=== PATIENT | female | born 1945 | race Caucasian/White ===

== ENCOUNTER → 2018-03-25 | Outpatient (CLI) | payer MEDICARE, OTHER ==
[~2018-03-25] MED LIST: ACET500 PO; CALCIUM + VIT1 EACH PO; CLOBET30L TOP; CYAN1000 PO; CYCL10 PO; ESTR25VT; FLUT110OIA INH; GABA100 PO; HYDACE5 PO; MAXIMUM DAILY1 EACH PO; MONT10T PO; NITR100 PO; Nitrofurantoin50 MG PO; Norco 5-325 Ta1 EACH PO; OMEP10ER PO; OXYB5 PO; Omeprazole20 M1 PO; Percocet 5-3251 EACH PO; QVAR7.3 G1 IH; RABE20; Tylophen500 MG PO; Zofran4 MG PO
[2018-03-25 15:01] LABS: Source, Urine Clean Catch
[2018-03-25 15:13] LABS: Bacteria Few /hpf; Red Blood Cells, Urine 0-2 /hpf (0-2); Squamous Epithelial Cells Mod /hpf (Few)
== END | disposition home or self-care (01) ==
LOC: LAB SHORT 14:57
PROVIDERS: Physician Assistant
DX: M54.5 Low back pain (principal); R82.79 Other abnormal findings on microbiological examination of urine
CPT/HCPCS: 81015; 87077; 87086; 87186

== ENCOUNTER 2018-05-01 01:49 | Emergency (ER) | payer MEDICARE, OTHER ==
[~2018-05-01] VITALS: Ht 160 cm; Wt 98.4 kg
== END 2018-05-01 02:39 | disposition home or self-care (01) ==
LOC: ER 01:49
DX: G89.29 Other chronic pain (principal); M54.5 Low back pain; S32.059D Unspecified fracture of fifth lumbar vertebra, subsequent encounter for fracture with routine healing; Z88.1 Allergy status to other antibiotic agents; Z88.0 Allergy status to penicillin; Z88.5 Allergy status to narcotic agent; Z88.8 Allergy status to other drugs, medicaments and biological substances
CPT/HCPCS: 96372; 99284-25; J1170; J1885; J2405

== ENCOUNTER 2019-01-19 18:09 | Emergency (ER) | payer MEDICARE, OTHER ==
[~2019-01-19] VITALS: Ht 160 cm; Wt 88.0 kg
[2019-01-19 19:53] LABS: BASOPHILS ABSOLUTE AUTO 0.03 K/mm3 (0.00-0.23); BASOPHILS PERCENT AUTO 0 % (0-2); EOSINOPHILS ABSOLUTE AUTO 0.71 K/mm3 (0.00-0.68); EOSINOPHILS PERCENT AUTO 9 % (0-6); Hematocrit 30.2 % (33.0-51.0); Hemoglobin 10.2 g/dL (11.5-16.0); IMMATURE GRAN ABSOLUTE AUTO 0.03 K/mm3 (0.00-0.10); IMMATURE GRAN PERCENT AUTO 0 % (0-1); LYMPHOCYTES ABSOLUTE AUTO 1.56 K/mm3 (0.84-5.20); LYMPHOCYTES PERCENT AUTO 19 % (21-46); MONOCYTES ABSOLUTE AUTO 0.62 K/mm3 (0.16-1.47); MONOCYTES PERCENT AUTO 7 % (4-13); Mean Corpuscular HGB 33.1 pg (26.0-34.0); Mean Corpuscular HGB Conc 33.8 g/dL (31.5-36.5); Mean Corpuscular Volume 98 fL (80-100); Mean Platelet Volume 11.9 fL (9.1-12.4); NEUTROPHILS ABSOLUTE AUTO 5.39 K/mm3 (1.96-9.15); NEUTROPHILS PERCENT AUTO 65 % (41-73); Platelet Count 240 K/mm3 (150-400); RDW Coefficient Variation 13.5 % (11.7-14.2); RDW Standard Deviation 47.7 fL (35.1-46.3); Red Blood Cell Count 3.08 M/mm3 (3.80-5.20); White Blood Cell Count 8.34 K/mm3 (4.00-11.30)
[2019-01-19 20:21] LABS: Alanine Aminotransfer (ALT/SGP 23 U/L (12-78); Albumin, Blood 3.7 g/dL (3.4-5.0); Albumin/Globulin Ratio 1.2 (0.8-1.8); Alk Phos 107 U/L (50-136); Anion Gap 5 mmol/L (6-16); Aspartate Aminotrans (AST/SGOT 23 U/L (12-37); Bilirubin, Total 0.4 mg/dL (0.1-1.0); Blood Urea Nitrogen 12 mg/dL (8-24); Bun/Creatinine Ratio 15.7 (12.0-20.0); CO2, Blood 27 mmol/L (21-32); Calcium, Blood 9.2 mg/dL (8.5-10.1); Chloride, Blood 109 mmol/L (98-108); Creatinine, Blood 0.76 mg/dL (0.40-1.00); Glomerular Filtration Rate >60 (60-); Glucose, Blood 95 mg/dL (70-99); Potassium, Blood 4.2 mmol/L (3.5-5.5); Sodium, Blood 141 mmol/L (136-145); Total Protein, Blood 6.7 g/dL (6.4-8.2)
[2019-01-19] MEDS ORDERED: HYDCHL12.5 PO (20:26)
[2019-01-19] MEDS ORDERED: MONT10T PO (20:26)
[2019-01-19] MEDS ORDERED: OXYB5 PO (20:27)
[2019-01-19] MEDS ORDERED: OMEPRAZOLE20 MG PO (20:29)
[2019-01-19] MEDS ORDERED: GABA100 PO (20:30)
[2019-01-19] MEDS ORDERED: ALEN70 PO (20:31)
[2019-01-19] MEDS ORDERED: ASCO500 PO (20:33)
[2019-01-19] MEDS ORDERED: CALCIUM CITRAT1 EAC7 PO (20:36)
[2019-01-19] MEDS ORDERED: ONE DAILY FOR1 EAC3 PO (20:37)
[2019-01-19] MEDS ORDERED: VITAMIN D32000 UNI1 PO (20:38)
[2019-01-19] MEDS ORDERED: DOCU100 PO (20:39)
[2019-01-19] MEDS ORDERED: ACET500 PO (20:47)
[2019-01-19] MEDS ORDERED: Vitamin B Comple1 EA PO (20:47)
[2019-01-19] MEDS ORDERED: Advil200 M1 PO (20:48)
[2019-01-19 20:55] LABS: Source, Urine Clean Catch
[2019-01-19 21:00] LABS: Bilirubin, Urine Neg (Neg); Blood, Urine Neg (Neg); Glucose Qualitative, Urine Neg (Neg); Ketones, Urine Neg (Neg); Leukocyte Esterase, Urine 3+ (Neg); Nitrite, Urine Neg (Neg); Protein, Urine Neg (Neg); Specific Gravity, Urine 1.005 (1.003-1.022); Urobilinogen, Urine NORM (Normal)
[2019-01-19 21:08] LABS: Appearance, Urine Clear (Clear); Color, Urine Yellow (P-Yellow)
[2019-01-19 21:12] LABS: Red Blood Cells, Urine Not Seen /hpf (0-2); Squamous Epithelial Cells Few /hpf (Few)
[2019-01-19 21:13] LABS: Bacteria Mod /hpf; Transitional Epithelial Cells Rare /hpf (0-Rare)
[2019-01-19] MEDS ORDERED: Bactrim Ds Tab1 EACH PO (22:22)
== END 2019-01-19 23:04 | disposition home or self-care (01) ==
LOC: ER 18:09
PROVIDERS: Emergency Medicine; Physician Assistant
DX: K52.9 Noninfective gastroenteritis and colitis, unspecified (principal); K21.9 Gastro-esophageal reflux disease without esophagitis; I10 Essential (primary) hypertension; J45.909 Unspecified asthma, uncomplicated; Z88.1 Allergy status to other antibiotic agents; Z88.0 Allergy status to penicillin; Z88.8 Allergy status to other drugs, medicaments and biological substances; Z88.6 Allergy status to analgesic agent; Z79.899 Other long term (current) drug therapy
CPT/HCPCS: 36415; 74177; 80053; 81001; 82272; 85025; 86850; 86900; 86901; 87086; 93005; 93010; 96360-59; 99284-25; J7120; Q9967

== ENCOUNTER → 2019-01-22 | Outpatient (CLI) | payer MEDICARE, OTHER ==
[~2019-01-22] MED LIST changes: +ALEN70 PO; +ASCO500 PO; +Advil200 M1 PO; +Bactrim Ds Tab1 EACH PO; +CALCIUM CITRAT1 EAC7 PO; +DOCU100 PO; +HYDCHL12.5 PO; +OMEPRAZOLE20 MG PO; +ONE DAILY FOR1 EAC3 PO; +VITAMIN D32000 UNI1 PO; +Vitamin B Comple1 EA PO
[2019-01-23 13:58] LABS: Adenovirus F 40/41 Not Detected (NOT DETECT); Astrovirus Not Detected (NOT DETECT); Campylobacter Sp Not Detected (NOT DETECT); Cryptosporidium Not Detected (NOT DETECT); Cyclospora Cayetanensis Not Detected (NOT DETECT); E. Coli O157 Not Detected (NOT DETECT); Entamoeba Histolytica Not Detected (NOT DETECT); Enteroaggregative E. coli-EAEC Not Detected (NOT DETECT); Enteropathogenic E. coli-EPEC Not Detected (NOT DETECT); Enterotoxigenic E. coli-ETEC Not Detected (NOT DETECT); Giardia Lamblia Not Detected (NOT DETECT); Norovirus GI/GII Not Detected (NOT DETECT); Plesiomonas Shigelloides Not Detected (NOT DETECT); Rotavirus A Not Detected (NOT DETECT); Salmonella Sp Not Detected (NOT DETECT); Sapovirus Not Detected (NOT DETECT); Shiga Toxin-prod E. coli-STEC Not Detected (NOT DETECT); Shigella/Enteroin E. coli-EIEC Not Detected (NOT DETECT); Vibrio Cholerae Not Detected (NOT DETECT); Vibrio Sp Not Detected (NOT DETECT); Yersinia Enterocolitica Not Detected (NOT DETECT)
== END | disposition home or self-care (01) ==
LOC: LAB SHORT 21:20 → LAB 21:20
PROVIDERS: Physician Assistant
DX: K52.9 Noninfective gastroenteritis and colitis, unspecified (principal)
CPT/HCPCS: 0097U

== ENCOUNTER 2019-02-06 13:25 | Day surgery (SDC) | payer MEDICARE, OTHER ==
[~2019-02-06] VITALS: Ht 160 cm; Wt 88.4 kg
== END 2019-02-06 15:27 | disposition home or self-care (01) ==
LOC: ORSCSDS 13:25
PROVIDERS: Internal Medicine Gastroenterology
PROC: 0DBE8ZX Excision of Large Intestine, Via Natural or Artificial Opening Endoscopic, Diagnostic (ICD-10-PCS; principal; 2019-02-06 15:15)
DX: K62.5 Hemorrhage of anus and rectum (principal); R10.32 Left lower quadrant pain; K57.30 Diverticulosis of large intestine without perforation or abscess without bleeding; K64.8 Other hemorrhoids; Z86.010 Personal history of colon polyps; Z79.899 Other long term (current) drug therapy
CPT/HCPCS: 88305; J2704; J7120

== ENCOUNTER → 2019-04-25 | Outpatient (CLI) | payer MEDICARE, OTHER | END | disposition home or self-care (01) | LOC: LAB EV 17:52 → LAB SHORT 17:52 → LAB 17:52 | DX: N39.0 Urinary tract infection, site not specified (principal) | CPT/HCPCS: 87086 ==

== ENCOUNTER → 2019-07-12 | Outpatient (CLI) | payer MEDICARE, OTHER | END | disposition home or self-care (01) | LOC: PLD 08:24 → LAB SHORT 08:24 | DX: M79.3 Panniculitis, unspecified (principal) | CPT/HCPCS: 88305; 88312 ==

== ENCOUNTER → 2019-07-20 | Outpatient (CLI) | payer MEDICARE, OTHER ==
[2019-07-20 18:48] LABS: BASOPHILS ABSOLUTE AUTO 0.06 K/mm3 (0.00-0.23); BASOPHILS PERCENT AUTO 1 % (0-2); EOSINOPHILS ABSOLUTE AUTO 0.01 K/mm3 (0.00-0.68); EOSINOPHILS PERCENT AUTO 0 % (0-6); Hematocrit 31.6 % (33.0-51.0); Hemoglobin 10.4 g/dL (11.5-16.0); IMMATURE GRAN ABSOLUTE AUTO 0.04 K/mm3 (0.00-0.10); IMMATURE GRAN PERCENT AUTO 0 % (0-1); LYMPHOCYTES ABSOLUTE AUTO 1.11 K/mm3 (0.84-5.20); LYMPHOCYTES PERCENT AUTO 10 % (21-46); MONOCYTES ABSOLUTE AUTO 0.47 K/mm3 (0.16-1.47); MONOCYTES PERCENT AUTO 4 % (4-13); Mean Corpuscular HGB Conc 32.9 g/dL (31.5-36.5); Mean Corpuscular Volume 100 fL (80-100); Mean Platelet Volume 11.8 fL (9.1-12.4); NEUTROPHILS ABSOLUTE AUTO 9.73 K/mm3 (1.96-9.15); NEUTROPHILS PERCENT AUTO 85 % (41-73); Platelet Count 283 K/mm3 (150-400); RDW Coefficient Variation 14.8 % (11.7-14.2); RDW Standard Deviation 53.1 fL (35.1-46.3); Red Blood Cell Count 3.15 M/mm3 (3.80-5.20); White Blood Cell Count 11.42 K/mm3 (4.00-11.30)
[2019-07-20 19:11] LABS: Alanine Aminotransfer (ALT/SGP 37 U/L (12-78); Albumin, Blood 3.9 g/dL (3.4-5.0); Albumin/Globulin Ratio 1.3 (0.8-1.8); Alk Phos 100 U/L (50-136); Anion Gap 5 mmol/L (6-16); Aspartate Aminotrans (AST/SGOT 21 U/L (12-37); Bilirubin, Total 0.5 mg/dL (0.1-1.0); Blood Urea Nitrogen 21 mg/dL (8-24); Bun/Creatinine Ratio 27.1 (12.0-20.0); CO2, Blood 27 mmol/L (21-32); Calcium, Blood 9.3 mg/dL (8.5-10.1); Chloride, Blood 107 mmol/L (98-108); Creatinine, Blood 0.78 mg/dL (0.40-1.00); Glomerular Filtration Rate >60 (60-); Glucose, Blood 101 mg/dL (70-99); Potassium, Blood 4.3 mmol/L (3.5-5.5); Sodium, Blood 139 mmol/L (136-145); Total Protein, Blood 6.9 g/dL (6.4-8.2)
== END | disposition home or self-care (01) ==
LOC: LAB SHORT 16:30 → LAB 16:30
PROVIDERS: Internal Medicine Rheumatology
DX: M06.9 Rheumatoid arthritis, unspecified (principal); D64.9 Anemia, unspecified
CPT/HCPCS: 80053; 85025; 85651

== ENCOUNTER → 2020-03-26 | Outpatient (CLI) | payer MEDICARE, OTHER | END | disposition home or self-care (01) | LOC: LAB EV 11:30 → LAB SHORT 11:30 | DX: N39.0 Urinary tract infection, site not specified (principal) | CPT/HCPCS: 87077; 87086; 87186 ==

== ENCOUNTER → 2020-04-29 | Outpatient (CLI) | payer MEDICARE, OTHER | END | disposition home or self-care (01) | LOC: PLD 12:11 → LAB SHORT 12:11 | DX: D36.12 Benign neoplasm of peripheral nerves and autonomic nervous system, upper limb, including shoulder (principal) | CPT/HCPCS: 88305 ==

== ENCOUNTER → 2020-07-26 | Outpatient (CLI) | payer MEDICARE, OTHER ==
[~2020-07-26] MED LIST changes: +ALBU90OI; +ASPI325EC PO; +ATOR40TA PO; +CALCIUM 600-VI1 EAC2 PO; -CALCIUM CITRAT1 EAC7 PO; +DAILY-VITE1 EACH PO; +FLUTICASONE PRO16 GM; +FOLI1 PO; +FUROSEMIDE40 MG PO; +K-Dur 20 meq T20 MEQ PO; +METHOTREXATE2.5 M2 PO; +METOPROLOL TART50 M2 PO; -ONE DAILY FOR1 EAC3 PO; +PRED5 PO
[2020-07-26 14:14] LABS: Hematocrit 32.4 % (33.0-51.0)
== END | disposition home or self-care (01) ==
LOC: LAB 14:10 → LAB SHORT 14:10
PROVIDERS: Chiropractor
DX: K92.1 Melena (principal)
CPT/HCPCS: 85014; 85018

== ENCOUNTER 2020-08-12 18:18 | Observation (INO) | payer MEDICARE, OTHER ==
[~2020-08-12] VITALS: Ht 160 cm; Wt 100.5 kg
[~2020-08-12 18:18] MED LIST changes: -ALBU90OI; -ASPI325EC PO; -ATOR40TA PO; -FLUTICASONE PRO16 GM; -FOLI1 PO; -FUROSEMIDE40 MG PO; -K-Dur 20 meq T20 MEQ PO; -METHOTREXATE2.5 M2 PO; -METOPROLOL TART50 M2 PO; -PRED5 PO
[2020-08-12 19:06] LABS: BASOPHILS ABSOLUTE AUTO 0.03 K/mm3 (0.00-0.23); BASOPHILS PERCENT AUTO 0 % (0-2); EOSINOPHILS ABSOLUTE AUTO 0.01 K/mm3 (0.00-0.68); EOSINOPHILS PERCENT AUTO 0 % (0-6); Hematocrit 31.8 % (33.0-51.0); Hemoglobin 10.7 g/dL (11.5-16.0); IMMATURE GRAN ABSOLUTE AUTO 0.06 K/mm3 (0.00-0.10); IMMATURE GRAN PERCENT AUTO 1 % (0-1); LYMPHOCYTES ABSOLUTE AUTO 0.89 K/mm3 (0.84-5.20); LYMPHOCYTES PERCENT AUTO 10 % (21-46); MONOCYTES ABSOLUTE AUTO 0.35 K/mm3 (0.16-1.47); MONOCYTES PERCENT AUTO 4 % (4-13); Mean Corpuscular HGB Conc 33.6 g/dL (31.5-36.5); Mean Corpuscular Volume 104 fL (80-100); Mean Platelet Volume 11.1 fL (9.1-12.4); NEUTROPHILS ABSOLUTE AUTO 7.93 K/mm3 (1.96-9.15); NEUTROPHILS PERCENT AUTO 86 % (41-73); NRBC ABSOLUTE 0.03 K/mm3 (0.00-0.02); NRBC Auto 0.3 /100 WBC (0.0-0.2); RDW Coefficient Variation 13.8 % (11.7-14.2); RDW Standard Deviation 52.5 fL (35.1-46.3); Red Blood Cell Count 3.06 M/mm3 (3.80-5.20); White Blood Cell Count 9.27 K/mm3 (4.00-11.30)
[2020-08-12 19:16] LABS: Alanine Aminotransfer (ALT/SGP 38 U/L (12-78); Albumin, Blood 3.7 g/dL (3.4-5.0); Albumin/Globulin Ratio 1.2 (0.8-1.8); Alk Phos 79 U/L (50-136); Anion Gap 8 mmol/L (6-16); Aspartate Aminotrans (AST/SGOT 29 U/L (12-37); Bilirubin, Total 0.6 mg/dL (0.1-1.0); Blood Urea Nitrogen 20 mg/dL (8-24); Bun/Creatinine Ratio 24.8 (12.0-20.0); CO2, Blood 26 mmol/L (21-32); Calcium, Blood 9.8 mg/dL (8.5-10.1); Chloride, Blood 103 mmol/L (98-108); Creatinine, Blood 0.81 mg/dL (0.40-1.00); Glomerular Filtration Rate >60 (60-); Glucose, Blood 116 mg/dL (70-99); Potassium, Blood 4.6 mmol/L (3.5-5.5); Sodium, Blood 137 mmol/L (136-145); Total Protein, Blood 6.7 g/dL (6.4-8.2); Troponin I <0.015 ng/mL (0.000-0.040)
[2020-08-12 21:32] LABS: Source, Urine Voided
[2020-08-12 21:34] LABS: Bilirubin, Urine Neg (Neg); Blood, Urine Neg (Neg); Glucose Qualitative, Urine Neg (Neg); Ketones, Urine Neg (Neg); Leukocyte Esterase, Urine 1+ (Neg); Nitrite, Urine Neg (Neg); Protein, Urine Neg (Neg); Urobilinogen, Urine NORM (Normal)
[2020-08-12 21:40] LABS: Appearance, Urine Clear (Clear); Color, Urine Pale Yellow (P-Yellow)
[2020-08-12 21:41] LABS: Bacteria Not Seen /hpf; Red Blood Cells, Urine Not Seen /hpf (0-2); Squamous Epithelial Cells Not Seen /hpf (Few)
[2020-08-12] MEDS ORDERED: METOPROLOL TART50 M2 PO (21:45)
[2020-08-12] MEDS ORDERED: FUROSEMIDE40 MG PO (21:46)
[2020-08-12] MEDS ORDERED: METHOTREXATE2.5 M2 PO (21:46)
[2020-08-12] MEDS ORDERED: K-Dur 20 meq T20 MEQ PO (21:47)
[2020-08-12] MEDS ORDERED: PRED5 PO (21:49)
[2020-08-12] MEDS ORDERED: FOLI1 PO (21:49)
[2020-08-12] MEDS ORDERED: OXYB5 PO (21:50)
[2020-08-12] MEDS ORDERED: ASPI325EC PO (21:51)
[2020-08-12] MEDS ORDERED: FLUTICASONE PRO16 GM (21:52)
[2020-08-13 07:21] LABS: BASOPHILS ABSOLUTE AUTO 0.04 K/mm3 (0.00-0.23); BASOPHILS PERCENT AUTO 1 % (0-2); EOSINOPHILS ABSOLUTE AUTO 0.13 K/mm3 (0.00-0.68); EOSINOPHILS PERCENT AUTO 2 % (0-6); Hematocrit 29.7 % (33.0-51.0); Hemoglobin 10.1 g/dL (11.5-16.0); IMMATURE GRAN ABSOLUTE AUTO 0.03 K/mm3 (0.00-0.10); IMMATURE GRAN PERCENT AUTO 0 % (0-1); LYMPHOCYTES ABSOLUTE AUTO 1.98 K/mm3 (0.84-5.20); LYMPHOCYTES PERCENT AUTO 28 % (21-46); MONOCYTES ABSOLUTE AUTO 0.55 K/mm3 (0.16-1.47); MONOCYTES PERCENT AUTO 8 % (4-13); Mean Corpuscular HGB 35.8 pg (26.0-34.0); Mean Corpuscular Volume 105 fL (80-100); Mean Platelet Volume 11.2 fL (9.1-12.4); NEUTROPHILS ABSOLUTE AUTO 4.48 K/mm3 (1.96-9.15); NEUTROPHILS PERCENT AUTO 62 % (41-73); Platelet Count 258 K/mm3 (150-400); RDW Coefficient Variation 13.9 % (11.7-14.2); RDW Standard Deviation 52.8 fL (35.1-46.3); Red Blood Cell Count 2.82 M/mm3 (3.80-5.20); White Blood Cell Count 7.21 K/mm3 (4.00-11.30)
[2020-08-13 07:39] LABS: Anion Gap 2 mmol/L (6-16); Blood Urea Nitrogen 17 mg/dL (8-24); Bun/Creatinine Ratio 20.3 (12.0-20.0); CO2, Blood 32 mmol/L (21-32); Calcium, Blood 8.9 mg/dL (8.5-10.1); Chloride, Blood 108 mmol/L (98-108); Creatinine, Blood 0.84 mg/dL (0.40-1.00); Glomerular Filtration Rate >60 (60-); Glucose, Blood 81 mg/dL (70-99); Potassium, Blood 4.2 mmol/L (3.5-5.5); Sodium, Blood 142 mmol/L (136-145); Troponin I <0.015 ng/mL (0.000-0.040)
--- NOTE | 2020-08-13 15:39 | NUR ---
SHIFT SUMMARY 1255 RECEIVED PT TO RM 303 VIA MAGALYS FROM ER. PT ADMITTED FOR C/O CP; TROPONINS X3 NEG TO PRESENT. PT BEING PREPARED FOR FIRST PART OF STRESS TEST WHILE IN ER, BEING INJECTED BY NUC MED AND THEN SENT UP TO . PT PROVIDED LUNCH PER NUC MED AND THEN TAKEN DOWN FOR STRESS TEST. RECEIVED REPORT FROM CHARLES AUSTIN, PT C/O MIDSTERNUM CP LASTING APPROX 45 MINS BEFORE COMING TO ER LAST NIGHT AT 1830. PT WITH NEW ONSET OF A-FIB IN JUNE, STARTING ON ELIQUIS. PT DEVELOPING GIB AND STOPPED TAKING ELIQUIS. PT REPORTED THAT SHE DOES HAVE SEVERE ACID REFLUX WELL. PT ABLE TO AMBULATE TO BTHRM WITH 1P SBA. PT VOIDING WELL. PT CONTINUES TO DENY CP. NO C/O. PT WILL BE ABLE TO EAT DINNER TONIGHT AND BREAKFAST IN AM IF SHE CAN BE DONE BY 0800. PT INFORMED AND VERBALIZED UNDERSTANDING. DENIES FURTHER NEEDS AT THIS TIME. CALL LT IN REACH
--- NOTE | 2020-08-13 19:33 | NUR ---
ASSUMPTION OF CARE. SALVADOR IS DOING WELL, NO CP [facility] [place] FIRST PART OF STRESS TEST PERFORMED TODAY. DENIES ANY CARDIAC SYMPTOMS AT THIS TIME. VS WNL, AFEBRILE. NO EDEMA. HR SINUS. WILL HAVE SECOND PART OF STRESS TEST TOMORROW. PM MEDS GIVEN, CALL LIGHT IS WITH IN REACH.
--- NOTE | 2020-08-14 06:24 | NUR ---
SHIFT SUMMARY: SALVADOR HAD A GOOD NIGHT, NO CP OR SIGNS OF CARDIAC ISSUES. SHE DID GET A HEADACHE BUT WAS RESOLVED WHEN TYLENOL WAS GIVEN. INDEPENDENT IN THE ROOM. VS WNL, AFEBRILE. NO ACUTE CHANGES TO NOT THIS SHIFT. SLEPT WELL. WILL BE NPO AFTER 0800 THIS AM FOR 2ND PART OF STRESS TEST. CALL LIGHT IS IN REACH.
[2020-08-14] MEDS ORDERED: ATOR40TA PO (17:54)
--- NOTE | 2020-08-14 18:06 | NUR ---
DR EISENBERG, PT TO BE DISCHARGED TONITE. WILL PLACE ORDERS.
--- NOTE | 2020-08-14 19:20 | NUR ---
DISCHARGE REVIEWED WITH PT. PT VERBALIZED UNDERSTANDING MEDS AND INSTRUCT. IV PULLED INTACT. TELE REMOVED. PT WHEELEED TO DOOR AT 0915
[2020-10-08] MEDS ORDERED: ALBU90OI (15:32)
== END 2020-08-14 19:10 | disposition home or self-care (01) ==
LOC: ER 18:18 → MEDS 18:19 → ERHOLD 18:19 → MEDS 08-13 12:47
PROVIDERS: Emergency Medicine; Nurse Practitioner Acute Care; ADMIT Internal Medicine
DX: R07.9 Chest pain, unspecified (principal); I48.91 Unspecified atrial fibrillation; I10 Essential (primary) hypertension; K21.9 Gastro-esophageal reflux disease without esophagitis; M06.9 Rheumatoid arthritis, unspecified; M19.90 Unspecified osteoarthritis, unspecified site; J45.909 Unspecified asthma, uncomplicated
CPT/HCPCS: 36415; 71045; 78452; 80048; 80053; 81001; 83880; 84484; 85025; 93005; 93010; 93017; 96361-59; 96372; 96374-59; 96375-59; 99285-25; A9270; A9500; G0378; J0280; J1650; J2405; J2785; J3475; J7030; J7512

== ENCOUNTER 2020-10-14 10:50 | Day surgery (SDC) | payer MEDICARE, OTHER ==
[~2020-10-14] VITALS: Ht 160 cm; Wt 103.2 kg
[~2020-10-14 10:50] MED LIST changes: +ALBU90OI; +ASPI325EC PO; +ATOR40TA PO; +FLUTICASONE PRO16 GM; +FOLI1 PO; +FUROSEMIDE40 MG PO; +K-Dur 20 meq T20 MEQ PO; +METHOTREXATE2.5 M2 PO; +METOPROLOL TART50 M2 PO; +PRED5 PO
--- NOTE | 2020-10-14 11:26 | NUR ---
10/14/20 1126 GISELLA TRAN ONE ATTEMPT BY RAJ IN RH VALVE ONE SUCCESSFUL BY RAJ IN RFA PT TOW
== END 2020-10-14 12:47 | disposition home or self-care (01) ==
LOC: ORSCSDS 10:50
PROVIDERS: Internal Medicine Gastroenterology
PROC: 0DB68ZX Excision of Stomach, Via Natural or Artificial Opening Endoscopic, Diagnostic (ICD-10-PCS; principal; 2020-10-14 12:00)
PROC: 0DB98ZX Excision of Duodenum, Via Natural or Artificial Opening Endoscopic, Diagnostic (ICD-10-PCS; principal; 2020-10-14 12:00)
PROC: 0DB58ZX Excision of Esophagus, Via Natural or Artificial Opening Endoscopic, Diagnostic (ICD-10-PCS; principal; 2020-10-14 12:00)
DX: K21.00 Gastro-esophageal reflux disease with esophagitis, without bleeding (principal); K62.5 Hemorrhage of anus and rectum; K31.7 Polyp of stomach and duodenum; G47.33 Obstructive sleep apnea (adult) (pediatric); J45.909 Unspecified asthma, uncomplicated; I10 Essential (primary) hypertension; Z79.82 Long term (current) use of aspirin; Z79.899 Other long term (current) drug therapy; K44.9 Diaphragmatic hernia without obstruction or gangrene
CPT/HCPCS: 87081; 88305; 88342; J2001; J2250; J2704; J7120

== ENCOUNTER 2020-11-04 12:47 | Day surgery (SDC) | payer MEDICARE, OTHER ==
[~2020-11-04] VITALS: Ht 160 cm; Wt 103.4 kg
== END 2020-11-04 15:05 | disposition home or self-care (01) ==
LOC: ORSCSDS 12:47
PROVIDERS: Internal Medicine Gastroenterology
PROC: 0DJD8ZZ Inspection of Lower Intestinal Tract, Via Natural or Artificial Opening Endoscopic (ICD-10-PCS; principal; 2020-11-04 14:00)
DX: K92.1 Melena (principal); D50.9 Iron deficiency anemia, unspecified; K64.0 First degree hemorrhoids; K57.30 Diverticulosis of large intestine without perforation or abscess without bleeding; I48.91 Unspecified atrial fibrillation; Z79.01 Long term (current) use of anticoagulants; G47.33 Obstructive sleep apnea (adult) (pediatric); J44.9 Chronic obstructive pulmonary disease, unspecified; K21.9 Gastro-esophageal reflux disease without esophagitis; E66.01 Morbid (severe) obesity due to excess calories; Z68.39 Body mass index [BMI] 39.0-39.9, adult; Z79.899 Other long term (current) drug therapy
CPT/HCPCS: J2704; J7120

== ENCOUNTER → 2021-02-27 | Outpatient (CLI) | payer MEDICARE, OTHER ==
[2021-02-27 15:49] LABS: Alanine Aminotransfer (ALT/SGP 45 U/L (12-78); Albumin, Blood 3.7 g/dL (3.4-5.0); Albumin/Globulin Ratio 1.4 (0.8-1.8); Alk Phos 65 U/L (50-136); Anion Gap 9 mmol/L (6-16); Aspartate Aminotrans (AST/SGOT 20 U/L (12-37); Bilirubin, Total 0.8 mg/dL (0.1-1.0); Blood Urea Nitrogen 17 mg/dL (8-24); Bun/Creatinine Ratio 22.4 (12.0-20.0); CO2, Blood 26 mmol/L (21-32); Calcium, Blood 9.5 mg/dL (8.5-10.1); Chloride, Blood 105 mmol/L (98-108); Creatinine, Blood 0.76 mg/dL (0.40-1.00); Globulin, Blood 2.7 g/dL (2.2-4.0); Glomerular Filtration Rate >60 (60-); Glucose, Blood 128 mg/dL (70-99); Potassium, Blood 3.9 mmol/L (3.5-5.5); Sodium, Blood 140 mmol/L (136-145); Total Protein, Blood 6.4 g/dL (6.4-8.2)
[2021-02-27 16:00] LABS: BASOPHILS ABSOLUTE AUTO 0.06 K/mm3 (0.00-0.23); BASOPHILS PERCENT AUTO 1 % (0-2); EOSINOPHILS ABSOLUTE AUTO 0.32 K/mm3 (0.00-0.68); EOSINOPHILS PERCENT AUTO 3 % (0-6); Hematocrit 30.9 % (33.0-51.0); Hemoglobin 10.6 g/dL (11.5-16.0); IMMATURE GRAN ABSOLUTE AUTO 0.05 K/mm3 (0.00-0.10); IMMATURE GRAN PERCENT AUTO 1 % (0-1); LYMPHOCYTES ABSOLUTE AUTO 1.69 K/mm3 (0.84-5.20); LYMPHOCYTES PERCENT AUTO 16 % (21-46); MONOCYTES ABSOLUTE AUTO 0.82 K/mm3 (0.16-1.47); MONOCYTES PERCENT AUTO 8 % (4-13); Mean Corpuscular HGB 36.9 pg (26.0-34.0); Mean Corpuscular HGB Conc 34.3 g/dL (31.5-36.5); Mean Corpuscular Volume 108 fL (80-100); Mean Platelet Volume 11.7 fL (9.1-12.4); NEUTROPHILS ABSOLUTE AUTO 7.58 K/mm3 (1.96-9.15); NEUTROPHILS PERCENT AUTO 72 % (41-73); NRBC ABSOLUTE 0.03 K/mm3 (0.00-0.02); NRBC Auto 0.3 /100 WBC (0.0-0.2); Platelet Count 312 K/mm3 (150-400); RDW Coefficient Variation 13.7 % (11.7-14.2); RDW Standard Deviation 53.4 fL (35.1-46.3); Red Blood Cell Count 2.87 M/mm3 (3.80-5.20); White Blood Cell Count 10.52 K/mm3 (4.00-11.30)
== END | disposition home or self-care (01) ==
LOC: LAB 11:55 → LAB SHORT 11:55
PROVIDERS: Internal Medicine Rheumatology
DX: M06.9 Rheumatoid arthritis, unspecified (principal)
CPT/HCPCS: 80053; 85025; 85651

== ENCOUNTER → 2021-05-06 | Outpatient (CLI) | payer MEDICARE, OTHER | END | disposition home or self-care (01) | LOC: LAB 15:13 → LAB SHORT 15:13 | DX: L72.0 Epidermal cyst (principal); D36.11 Benign neoplasm of peripheral nerves and autonomic nervous system of face, head, and neck; D36.17 Benign neoplasm of peripheral nerves and autonomic nervous system of trunk, unspecified | CPT/HCPCS: 88305 ==

== ENCOUNTER 2021-07-06 11:52 | Emergency (ER) | payer MEDICARE ==
[~2021-07-06] VITALS: Ht 162.6 cm; Wt 108.9 kg
[2021-07-06] MEDS ORDERED: ELIQUIS5 M2 PO (15:01)
[2021-07-06 15:18] LABS: Source, Urine Clean Catch
[2021-07-06 15:20] LABS: Appearance, Urine Clear (Clear); Bilirubin, Urine Neg (Neg); Blood, Urine Neg (Neg); Color, Urine Yellow (P-Yellow); Glucose Qualitative, Urine Neg (Neg); Ketones, Urine Neg (Neg); Leukocyte Esterase, Urine 2+ (Neg); Nitrite, Urine Neg (Neg); Protein, Urine Neg (Neg); Urobilinogen, Urine NORM (Normal)
[2021-07-06 15:31] LABS: Red Blood Cells, Urine 0-2 /hpf (0-2); Squamous Epithelial Cells Rare /hpf (Few)
[2021-07-06 15:32] LABS: Bacteria Mod /hpf; Yeast/Fungi Urine Rare /hpf
[2021-07-06] MEDS ORDERED: Percocet 5-3251 EACH PO (15:43)
[2021-07-06] MEDS ORDERED: Macrobid 100 M100 MG PO (15:43)
== END 2021-07-06 16:19 | disposition home or self-care (01) ==
LOC: ER 11:52
PROVIDERS: Physician Assistant
DX: S39.012A Strain of muscle, fascia and tendon of lower back, initial encounter (principal); M16.12 Unilateral primary osteoarthritis, left hip; N39.0 Urinary tract infection, site not specified; J45.909 Unspecified asthma, uncomplicated; K21.9 Gastro-esophageal reflux disease without esophagitis; Z88.1 Allergy status to other antibiotic agents; Z88.0 Allergy status to penicillin; Z88.8 Allergy status to other drugs, medicaments and biological substances; Z88.5 Allergy status to narcotic agent; Z79.899 Other long term (current) drug therapy; X58.XXXA Exposure to other specified factors, initial encounter
CPT/HCPCS: 36415; 72131; 73700; 81001; 87086; J1885; J7030

== ENCOUNTER → 2021-07-24 | Outpatient (CLI) | payer MEDICARE ==
[~2021-07-24] MED LIST changes: +ELIQUIS5 M2 PO; +Macrobid 100 M100 MG PO
== END | disposition home or self-care (01) ==
LOC: LAB SHORT 10:45
DX: N39.0 Urinary tract infection, site not specified (principal)
CPT/HCPCS: 87086

== ENCOUNTER 2021-10-04 13:41 | Emergency (ER) | payer MEDICARE ==
[~2021-10-04] VITALS: Ht 162.6 cm; Wt 107.5 kg
[~2021-10-04 13:41] MED LIST changes: -CALCIUM 600-VI1 EAC2 PO; +CALCIUM 600-VI1 EAC6 PO; -K-Dur 20 meq T20 MEQ PO; +METO50 PO; -METOPROLOL TART50 M2 PO; +POTCHL20ER PO
[2021-10-04 14:08] LABS: Source, Urine Straight Cath
[2021-10-04] MEDS ORDERED: FUROSEMIDE40 MG PO (14:17)
[2021-10-04 14:27] LABS: Appearance, Urine Clear (Clear); Bilirubin, Urine Neg (Neg); Blood, Urine Neg (Neg); Color, Urine Yellow (P-Yellow); Glucose Qualitative, Urine Neg (Neg); Ketones, Urine Neg (Neg); Leukocyte Esterase, Urine Neg (Neg); Nitrite, Urine Neg (Neg); Protein, Urine Neg (Neg); Urobilinogen, Urine NORM (Normal)
[2021-10-04 15:44] LABS: Alanine Aminotransfer (ALT/SGP 40 U/L (12-78); Albumin, Blood 3.6 g/dL (3.4-5.0); Albumin/Globulin Ratio 1.4 (0.8-1.8); Alk Phos 97 U/L (50-136); Anion Gap 3 mmol/L (6-16); Aspartate Aminotrans (AST/SGOT 22 U/L (12-37); BASOPHILS ABSOLUTE AUTO 0.03 K/mm3 (0.00-0.23); BASOPHILS PERCENT AUTO 0 % (0-2); Bilirubin, Total 0.7 mg/dL (0.1-1.0); Blood Urea Nitrogen 13 mg/dL (8-24); Bun/Creatinine Ratio 17.5 (12.0-20.0); CO2, Blood 34 mmol/L (21-32); Calcium, Blood 9.3 mg/dL (8.5-10.1); Chloride, Blood 103 mmol/L (98-108); Creatinine, Blood 0.74 mg/dL (0.40-1.00); EOSINOPHILS ABSOLUTE AUTO 0.01 K/mm3 (0.00-0.68); EOSINOPHILS PERCENT AUTO 0 % (0-6); Globulin, Blood 2.5 g/dL (2.2-4.0); Glomerular Filtration Rate >60 (60-); Glucose, Blood 145 mg/dL (70-99); Hematocrit 28.5 % (33.0-51.0); Hemoglobin 9.4 g/dL (11.5-16.0); IMMATURE GRAN ABSOLUTE AUTO 0.07 K/mm3 (0.00-0.10); IMMATURE GRAN PERCENT AUTO 1 % (0-1); LYMPHOCYTES ABSOLUTE AUTO 0.68 K/mm3 (0.84-5.20); LYMPHOCYTES PERCENT AUTO 7 % (21-46); MONOCYTES PERCENT AUTO 4 % (4-13); Mean Corpuscular HGB 35.7 pg (26.0-34.0); Mean Corpuscular Volume 108 fL (80-100); Mean Platelet Volume 10.7 fL (9.1-12.4); NEUTROPHILS ABSOLUTE AUTO 9.15 K/mm3 (1.96-9.15); NEUTROPHILS PERCENT AUTO 88 % (41-73); NRBC ABSOLUTE 0.02 K/mm3 (0.00-0.02); NRBC Auto 0.2 /100 WBC (0.0-0.2); Platelet Count 294 K/mm3 (150-400); RDW Coefficient Variation 15.9 % (11.7-14.2); RDW Standard Deviation 61.8 fL (35.1-46.3); Red Blood Cell Count 2.63 M/mm3 (3.80-5.20); Sodium, Blood 140 mmol/L (136-145); Total Protein, Blood 6.1 g/dL (6.4-8.2); White Blood Cell Count 10.34 K/mm3 (4.00-11.30)
[2021-10-04] MEDS ORDERED: CYCL10 PO (16:46)
[2022-01-28] MEDS ORDERED: GABA300 PO (15:28)
[2022-01-28] MEDS ORDERED: NYSTRIT TOP (15:28)
[2022-01-28] MEDS ORDERED: MULVITA PO (15:28)
[2022-01-28] MEDS ORDERED: POTCHL20ER PO (15:31)
[2022-01-28] MEDS ORDERED: Prednisone10 MG PO (15:32)
[2022-01-28] MEDS ORDERED: FORTEO2.4 ML SC (15:33)
== END 2021-10-04 17:27 | disposition home or self-care (01) ==
LOC: ER 13:41
PROVIDERS: Emergency Medicine
DX: M54.50 Low back pain, unspecified (principal); G89.29 Other chronic pain; Z88.0 Allergy status to penicillin; Z88.5 Allergy status to narcotic agent; Z88.8 Allergy status to other drugs, medicaments and biological substances; K21.9 Gastro-esophageal reflux disease without esophagitis; Z79.899 Other long term (current) drug therapy
CPT/HCPCS: 36415; 51701; 51798; 80053; 81003; 85025; 96374; 99283-25; J1170

== ENCOUNTER 2021-12-08 21:38 | Inpatient (IN) | payer MEDICARE ==
[~2021-12-08] VITALS: Ht 162.6 cm; Wt 99.6 kg
[2021-12-09 00:16] LABS: BASOPHILS ABSOLUTE AUTO 0.01 K/mm3 (0.00-0.23); BASOPHILS PERCENT AUTO 0 % (0-2); EOSINOPHILS PERCENT AUTO 0 % (0-6); Hematocrit 29.5 % (33.0-51.0); Hemoglobin 9.5 g/dL (11.5-16.0); IMMATURE GRAN ABSOLUTE AUTO 0.02 K/mm3 (0.00-0.10); IMMATURE GRAN PERCENT AUTO 0 % (0-1); LYMPHOCYTES ABSOLUTE AUTO 1.37 K/mm3 (0.84-5.20); LYMPHOCYTES PERCENT AUTO 25 % (21-46); MONOCYTES ABSOLUTE AUTO 0.55 K/mm3 (0.16-1.47); MONOCYTES PERCENT AUTO 10 % (4-13); Mean Corpuscular HGB 34.5 pg (26.0-34.0); Mean Corpuscular HGB Conc 32.2 g/dL (31.5-36.5); Mean Corpuscular Volume 107 fL (80-100); Mean Platelet Volume 10.4 fL (9.1-12.4); NEUTROPHILS ABSOLUTE AUTO 3.65 K/mm3 (1.96-9.15); NEUTROPHILS PERCENT AUTO 65 % (41-73); Platelet Count 309 K/mm3 (150-400); RDW Coefficient Variation 18.2 % (11.7-14.2); RDW Standard Deviation 71.1 fL (35.1-46.3); Red Blood Cell Count 2.75 M/mm3 (3.80-5.20)
[2021-12-09 00:42] LABS: Albumin, Blood 3.8 g/dL (3.4-5.0); Albumin/Globulin Ratio 1.4 (0.8-1.8); Bilirubin, Total 1.2 mg/dL (0.1-1.0); Bun/Creatinine Ratio 17.6 (12.0-20.0); Calcium, Blood 9.7 mg/dL (8.5-10.1); Creatinine, Blood 0.68 mg/dL (0.40-1.00); Globulin, Blood 2.7 g/dL (2.2-4.0); Total Protein, Blood 6.5 g/dL (6.4-8.2)
[2021-12-09 01:32] LABS: Source, Urine Clean Catch
[2021-12-09 01:35] LABS: Appearance, Urine Cloudy (Clear); Bilirubin, Urine Neg (Neg); Blood, Urine 2+ (Neg); Glucose Qualitative, Urine Neg (Neg); Ketones, Urine Neg (Neg); Leukocyte Esterase, Urine 3+ (Neg); Nitrite, Urine Neg (Neg); Protein, Urine 2+ (Neg); Urobilinogen, Urine NORM (Normal); pH, Urine 6.5 (5.0-8.0)
[2021-12-09 01:44] LABS: Influenza A, PCR NEGATIVE (NEGATIVE); Influenza B, PCR NEGATIVE (NEGATIVE); Resp Syncytial Virus, PCR NEGATIVE (NEGATIVE); SARS-Cov-2 (COVID-19) PCR, MMC NEGATIVE (NEGATIVE)
[2021-12-09 01:47] LABS: Color, Urine Pale Yellow (P-Yellow)
[2021-12-09 01:48] LABS: White Blood Cells, Urine TNTC /hpf (0-5)
[2021-12-09 01:49] LABS: Bacteria Many /hpf; Squamous Epithelial Cells Rare /hpf (Few); Transitional Epithelial Cells Few /hpf (0-Rare)
--- NOTE | 2021-12-09 17:43 | NUR ---
CARE NOTE PCU PURCHASING INTERN NOTIFIED THIS NURSE THAT PT HR WAS SUSTAINING IN 150-160'S. DR. CARTER MADE AWARE AND ORDERS FOR LOPRESSOR DOSE TO BE CHANGED FROM 2.5 MG TO 5 MG. ORDERS TO GIVE 5 MG NOW IF SBP ABOVE 110. BP IS STABLE. GEOFF CONTINUE TO MONITOR.
--- NOTE | 2021-12-09 18:17 | NUR ---
SHIFT SUMMARY PT ALERT AND ORIENTED X 4. BP STABLE, SHE IS AFEBRILE AND SPO2 >92% VIA ROOM AIR BUT HR HAS RANGED FROM 130-[address] CARTER MADE AWARE OF HR, SEE PREVIOUS NOTES FOR MANAGEMENT OF HR. PT IS ASYMPTOMATIC AND DENIES FEELING SHORT OF BREATH. SHE ALSO DENIES CHEST PAIN/PRESSURE. SHE REPORTED DISCOMFORT IN HER BACK BUT DENIED WANTING TYLENOL. REPOSITIONING APPEARES TO ALLEVIATE BACK PAIN. PT REPORTED T7 FRACTURE AND WEARS BACK BRACE WHEN AMBULATING DURING SIGNIFICANT DISTANCES. SHE REPORTED NAUSEA THIS AM AND WAS VOMITTING BUT HAS SINCE REPORTED THAT NAUSEA HAS CEASED. SHE DENIES HAVING AN APPETITE BUT WAS ABLE TO TAKE A FEW SIPS OF VANILLA ENSURE. SHE HAS BEEN SLEEPING FOR MAJORITY OF SHIFT. SHE CAN AMBULATE TO BEDSIDE COMMODE A 1 PERSON SBA, HER HR INCREASED TO 150'S DURING AMBULATION. NO OTHER ACUTE CHANGES NOTED. OUTCOMES MANAGER NOTIFIED TO MONITOR IF HR SUSTAINS IN 130'S SO THIS NURSE COULD START CARDIZEM DRIP PER ORDERS. NOW HR APPEARS TO RANGE 110-120'S. CALL LIGHT IN REACH. BED IN LOW.
--- NOTE | 2021-12-10 02:45 | NUR ---
UPDATE RETAIL BUSINESS DEVELOPMENT MANAGER CALLED THIS RN AROUND 0230 D/T HYPOTENSION, MAP <65. 250ML BOLUS INFUSED AND [facility]. SEE FLOWSHEET.
--- NOTE | 2021-12-10 03:20 | NUR ---
UPDATE BP CONTINUES TO BE LOW, CALL PLACED TO HOSPITALIST. ORDER RECIEVED FOR ANOTHER 250 BOLUS AND THEN MAINTANENCE FLUIDS AT 75mls/hr FOR ONE BAG. SEE UPDATED EMAR.
--- NOTE | 2021-12-10 05:41 | NUR ---
SHIFT SUMMARY PATIENT ALERT AND ORIENTED x4. VSS, SOFT BPs, SEE PREVIOUS NOTES. CARDIZEM GTT INFUSING, SEE FLOWSHEET FOR TITRATIONS/VITALS. DENIES CHEST PAIN OR OTHER ASSOCIATED SYMPTOMS WHEN HR IS 140s-150s. PATIENT ON RA WHILE AWAKE AND 2L NC WHILE SLEEPING DUE TO DESATTING INTO MID 80s AND HAVING SHORT PERIODS OF APNEA, O2 >90%. NO COMPLAINTS OF PAIN THIS SHIFT, PATIENT STATES SHE IS UNABLE TO GET COMFORTABLE IN THE BED. RECLINER BROUGHT TO ROOM, PATIENT ATTEMPTED TO SIT UP IN CHAIR BUT WAS UNCOMFORTABLE WELL. DECLINED THE NEED FOR ANY PAIN MEDS. PATIENT ABLE TO STAND PIVOT AND USE BSC OVERNIGHT, SUCCESSFUL BM THIS SHIFT. NO OTHER SIGNIFICANT CHANGES, WILL REPORT TO DAY SHIFT RN.
[2021-12-10 05:47] LABS: BASOPHILS ABSOLUTE AUTO 0.01 K/mm3 (0.00-0.23); BASOPHILS PERCENT AUTO 0 % (0-2); EOSINOPHILS PERCENT AUTO 0 % (0-6); Hematocrit 26.2 % (33.0-51.0); Hemoglobin 8.1 g/dL (11.5-16.0); IMMATURE GRAN ABSOLUTE AUTO 0.01 K/mm3 (0.00-0.10); IMMATURE GRAN PERCENT AUTO 0 % (0-1); LYMPHOCYTES ABSOLUTE AUTO 0.85 K/mm3 (0.84-5.20); LYMPHOCYTES PERCENT AUTO 18 % (21-46); MONOCYTES ABSOLUTE AUTO 0.26 K/mm3 (0.16-1.47); MONOCYTES PERCENT AUTO 5 % (4-13); Mean Corpuscular HGB 33.9 pg (26.0-34.0); Mean Corpuscular HGB Conc 30.9 g/dL (31.5-36.5); Mean Corpuscular Volume 110 fL (80-100); Mean Platelet Volume 10.6 fL (9.1-12.4); NEUTROPHILS ABSOLUTE AUTO 3.72 K/mm3 (1.96-9.15); NEUTROPHILS PERCENT AUTO 77 % (41-73); Platelet Count 242 K/mm3 (150-400); RDW Coefficient Variation 18.2 % (11.7-14.2); RDW Standard Deviation 71.7 fL (35.1-46.3); Red Blood Cell Count 2.39 M/mm3 (3.80-5.20); White Blood Cell Count 4.85 K/mm3 (4.00-11.30)
[2021-12-10 05:59] LABS: Albumin, Blood 2.9 g/dL (3.4-5.0); Albumin/Globulin Ratio 1.4 (0.8-1.8); Bilirubin, Total 1.5 mg/dL (0.1-1.0); Bun/Creatinine Ratio 16.4 (12.0-20.0); Calcium, Blood 8.8 mg/dL (8.5-10.1); Creatinine, Blood 0.55 mg/dL (0.40-1.00); Globulin, Blood 2.1 g/dL (2.2-4.0); Potassium, Blood 3.7 mmol/L (3.5-5.5)
[2021-12-10] MEDS ORDERED: ATOR40TA PO (11:45)
[2021-12-10] MEDS ORDERED: OXYC10TA19 PO (11:48)
[2021-12-10] MEDS ORDERED: TERIPARATIDE SC (11:51)
--- NOTE | 2021-12-10 18:57 | NUR ---
AMIODARONE NOTE AMIODARONE NOW INFUSING PER EMAR ORDERS AT 16.7 ML/HR OR 0.5 MG/MIN. ALSO SEE FLOW SHEET.
--- NOTE | 2021-12-10 19:33 | NUR ---
SHIFT SUMMARY PT HAS BEEN ALERT AND ORIENTED X4. HR NOW 100-110 BUT HAS RANGED FROM 80-130. BP HAS REMAINED STABLE, SPO2 HAS BEEN MAINTAINED >93%. CARDIZEM DRIP STOPPED AND AMIODARONE DRIP INFUSING PER EMAR ORDERS, SEE ICU FLOW SHEET FOR TITRATION OF AMIODARONE. PT HAS DENIED CHEST PAIN/PRESSURE T/O SHIFT. PT REPORTED BACK PAIN LATER IN SHIFT, SEE EMAR FOR MEDICATION MANAGEMENT. REPOSITIONING ALSO HELPS BUT PT CANNOT TOLARATE SAME POSITION FOR LONG DURATIONS OF TIME. SHE HAS BEEN AFEBRILE DURING SHIFT. PT ABLE TO GET UP TO BEDSIDE COMMODE A 1 PERSON SBA. SHE HAS HAD 1 EPISODE OF INCONTINENCE AND SHIFT PROGRESSED, SHE HAD DIARRHEA PER PORTABLE SAWMILL OPERATOR REPORT. AT APPROX. 1830, PT BECAME NAUSEAOUS AND VOMITTED, SEE EMAR FOR NAUSEA. IV IN RIGHT AC IS INFUSING AMIODARONE PER EMAR ORDERS, LEFT FOREARM IV IS SALINE LOCKED. NO OTHER ACUTE CHANGES NOTED. REPORT GIVEN TO MAGDALENA AUSTIN.
--- NOTE | 2021-12-11 05:22 | NUR ---
SHIFT SUMMARY PT ALERT AND ORIENTED X4. HR AFIB 80-100'S. AMIO GTT INFUSING. BP STABLE. AFBERILE. ON RA SATS OVER 90%. C/O BACK PAIN THIS EVENING. FREQUENT REPOSITIONING AND MEDICATED PER EMAR. PT STATES SHE WANTS TO HOLD OFF ON USING NARCOTICS. POOR PO INTAKE. TROUBLE SWALLOWING PILLS WHOLE. X1 ASSIST TO BEDSIDE COMMODE. IN BED SLEEPING WITH CALL ALARM AT SIDE, WILL CONTINUE TO MONITOR UNTIL REPORT GIVEN TO DAYSHIFT RN
--- NOTE | 2021-12-11 17:52 | NUR ---
SHIFT SUMMARY: ASSUMED CARE OF PT AT 0700. PT REMAINS A/OX4, ABLE TO COMMUNICATE NEEDS AND FOLLOW COMMANDS. PT C/O PAIN TO LOWER PAIN, PAIN MEDS GIVEN PER AUG. PT REMAINS ON RA WITH SpO2 ABOVE 90%, NO RESP DISTRESS NOTED. PT HAS BEEN IN A-FIB WITH HR BETWEEN 70-80, BLOOD PRESSURES STABLE. AMIO DRIP COMPLETE, PT TRANSITIONED TO P.O CARDIZEM. PT HAS DENIED ANY CP T/O. PT HAS HYPERACTIVE BOWEL TONES IN ALL QUADRANTS. PT C/O NAUSEA, ZOFRAN GIVEN PER AUG. PT HAS HAD SEVERAL LIQUID BM'S T/O SHIFT, AWARE, ORDERS TO OBTAIN C-DIFF SAMPLE, RESULTS PENDING. PT CAN BE INCONTINENT AT TIMES. MARGARETTE-CARE PROVIDED, ANUS AND MARGARETTE FOLDS ARE RED, BARRIER CREAM APPLIED. PT SAT UP IN CHAIR FOR ABOUT 2 HOURS, USING BACK BRACE, TOLERATED WELL. WILL CONTINUE TO MONITOR PT UNTIL REPORT IS GIVEN TO ONCOMING SHIFT.
--- NOTE | 2021-12-11 18:26 | NUR ---
Pt. is awake in bed and welcomes my visit. Pt. is pleasant but unsettled about wanting to go home, and verbalizes the hope she can go home tomorrow (Fri.). Listen empathetically. Pt. displays evidence of trust and engagement. Hyder with Pt. Pt. verbalizes gratitude for the spiritual care visit, and invited this co founder and director to return tomorrow.
[2021-12-12 02:10] LABS: C DIFFICILE DNA NEGATIVE (Negative)
[2021-12-12 04:37] LABS: BASOPHILS ABSOLUTE AUTO 0.02 K/mm3 (0.00-0.23); BASOPHILS PERCENT AUTO 0 % (0-2); EOSINOPHILS ABSOLUTE AUTO 0.02 K/mm3 (0.00-0.68); EOSINOPHILS PERCENT AUTO 0 % (0-6); Hematocrit 24.8 % (33.0-51.0); IMMATURE GRAN ABSOLUTE AUTO 0.02 K/mm3 (0.00-0.10); IMMATURE GRAN PERCENT AUTO 0 % (0-1); LYMPHOCYTES ABSOLUTE AUTO 0.84 K/mm3 (0.84-5.20); LYMPHOCYTES PERCENT AUTO 11 % (21-46); MONOCYTES ABSOLUTE AUTO 0.55 K/mm3 (0.16-1.47); MONOCYTES PERCENT AUTO 7 % (4-13); Mean Corpuscular HGB 34.5 pg (26.0-34.0); Mean Corpuscular HGB Conc 32.3 g/dL (31.5-36.5); Mean Corpuscular Volume 107 fL (80-100); Mean Platelet Volume 10.6 fL (9.1-12.4); NEUTROPHILS ABSOLUTE AUTO 6.39 K/mm3 (1.96-9.15); NEUTROPHILS PERCENT AUTO 81 % (41-73); Platelet Count 234 K/mm3 (150-400); RDW Coefficient Variation 17.5 % (11.7-14.2); RDW Standard Deviation 67.8 fL (35.1-46.3); Red Blood Cell Count 2.32 M/mm3 (3.80-5.20); White Blood Cell Count 7.84 K/mm3 (4.00-11.30)
[2021-12-12 05:00] LABS: Albumin, Blood 2.8 g/dL (3.4-5.0); Albumin/Globulin Ratio 1.2 (0.8-1.8); Bun/Creatinine Ratio 13.9 (12.0-20.0); Calcium, Blood 9.2 mg/dL (8.5-10.1); Creatinine, Blood 0.58 mg/dL (0.40-1.00); Globulin, Blood 2.3 g/dL (2.2-4.0); Potassium, Blood 3.3 mmol/L (3.5-5.5); Total Protein, Blood 5.1 g/dL (6.4-8.2)
--- NOTE | 2021-12-12 05:55 | NUR ---
SHIFT SUMMARY PT ALERT AND ORIENTED X4. ON RA SATS OVER 90%. BP STABLE. AFEBRILE. HR AFIB 90-110'S. PT HAD FREQUENT BOWEL MOVEMENTS TO START SHIFT. PER REPORT THIS OCCURED DURING THE DAY. FREQUENCY DECREASED NIGHT PROGRESSED. HX OF HEMORRHOIDS. TENDER BOTTOM, SOME RED IN STOOL. C.DIFF NEGATIVE. NECK PAIN RELIEVED PER EMAR. POOR PO INTAKE. IN BED SLEEPING WITH CALL ALARM AT SIDE. WILL CONTINUE TO MONITOR UNTIL REPORT GIVEN TO DAYSHIFT RN
--- NOTE | 2021-12-12 09:58 | NUR ---
CARE ASSUMPTION THIS RN ASSUMED CARE AT 0700 FROM MAGDALENA AUSTIN. VSS. TELE AFLUTTER/AFIB/120S. SPO2 >90% ON RA. PATIENT IS ALERT AND ORIENTED X4. PERRLA. PATIENT NEURO IS INTACT. PATIENT REPROTS NO HEADACHE OR NUMBNESS OR TINGLING. PATIENT HAS GENERALIZED WEAKNESS AND IS A ONE PERSON ASSIST. PATIENT LUNG SOUNDS CLEAR AND DIM LOWER LOBES ON RA AND PATIENT REPORTS NO SHORTNESS OF BREATH. PATIENT REPROTS NO CHEST PAIN. STRONG RADIAL AND PEDIS PULSES. CAP REFILL <3SECONDS. PATIENT HAS MINIMAL EDEMA IN LOWER EXTREMITIES. PATIENT HAS REDDNESS IN PANNUS, SCATTERED BRUSING AND SCABS THROUGHOUT, AND HEMORRHOIDS CURRENTLY EXPERINCING. PATIENT ABD IS MILD DISTENTION AND ACTIVE BOWEL TONES. PATIENT HAD A BM THIS AM AND REPORTS PAIN TO HER HEMORRHOIDS AND SLIGHT BLEEDING WHEN DOING MARGARETTE CARE THIS AM. SEE SHIFT ASSESSMENT FOR FURTHER DETAILS. MD BURDEN IN TO SEE PATIENT THIS AM AND DISCUSSED PLAN OF CARE. MEDICATIONS CHANGES TO HELP WITH THE LOOSE STOOLS THE PATIENT HAS BEEN EXPERINCING. PATIENT UNDERSTANDS PLAN OF CARE. PATIENT USES CALL LIGHT APPRORPITATELY. PATIENT UP TO CHAIR THIS AM AND DRANK AN ENSURE AND A COUPLE BITES OF BREAKFAST. CALL LIGHT IS WITHIN REACH AND BED IN LOWEST POSITION. WILL CONITNUE TO MONITOR AND PROVIDE CARE.
--- NOTE | 2021-12-12 14:50 | NUR ---
REPORT TO MED FLOOR RN PATIENT NEURO REMAINS INTACT. VSS. TELE AFLUTTER 70S. THIS RN GAVE REPORT TO MEDICAL FLOOR RN. PATIENT BELONGINGS GATHERED AND WITH PATIENT WHEN TRANSFERING TO NEW ROOM. NO ACUTE CHANGES THIS SHIFT.
--- NOTE | 2021-12-12 17:10 | NUR ---
SHIFT SUMMARY Patient transferred from PCU, handoff report given by RN. Patient is AOx4, SBA for transfers. Right AC is red/edematous, placed warm compress for comfort. Advanced patient to regular diet for dinner, will see if patient tolerates. Patient reports hemorrhoids, priya red blood noted, during toileting. Vitals stable.
--- NOTE | 2021-12-13 04:25 | NUR ---
SHIFT SUMMARY 76 YR F ADMITTED ON 12/09/21 FOR SEPSIS UTI. FULL CODE. PCU TRANSFER ON 12/12/21. NO ACUTE CHANGES THIS SHIFT. PT HAS SLEPT FOR MOST OF THIS SHIFT. SHE C/O PAIN IN HER RIGHT ARM THAT SHE STATES WAS SEVERE, AND WAS GIVEN TYLENOL PER HER REQUEST. SHE TAKES HER PILLS ONE AT A TIME AND SEEMS TO HAVE SLIGHT TROUBLE SWALLOWING THEM. HOWEVER, SHE WAS ABLE TO W/O CHOKING OR GAGGING. SHE IS PLEASANT AND COOPERATIVE WITH HER CARE. VS STABLE.
[2021-12-13 08:22] LABS: BASOPHILS ABSOLUTE AUTO 0.02 K/mm3 (0.00-0.23); BASOPHILS PERCENT AUTO 0 % (0-2); EOSINOPHILS ABSOLUTE AUTO 0.03 K/mm3 (0.00-0.68); EOSINOPHILS PERCENT AUTO 0 % (0-6); Hematocrit 26.8 % (33.0-51.0); Hemoglobin 8.4 g/dL (11.5-16.0); IMMATURE GRAN ABSOLUTE AUTO 0.02 K/mm3 (0.00-0.10); IMMATURE GRAN PERCENT AUTO 0 % (0-1); LYMPHOCYTES ABSOLUTE AUTO 0.66 K/mm3 (0.84-5.20); LYMPHOCYTES PERCENT AUTO 8 % (21-46); MONOCYTES ABSOLUTE AUTO 0.75 K/mm3 (0.16-1.47); MONOCYTES PERCENT AUTO 9 % (4-13); Mean Corpuscular HGB 34.1 pg (26.0-34.0); Mean Corpuscular HGB Conc 31.3 g/dL (31.5-36.5); Mean Corpuscular Volume 109 fL (80-100); Mean Platelet Volume 10.4 fL (9.1-12.4); NEUTROPHILS ABSOLUTE AUTO 6.67 K/mm3 (1.96-9.15); NEUTROPHILS PERCENT AUTO 82 % (41-73); Platelet Count 223 K/mm3 (150-400); RDW Coefficient Variation 17.8 % (11.7-14.2); RDW Standard Deviation 70.7 fL (35.1-46.3); Red Blood Cell Count 2.46 M/mm3 (3.80-5.20); White Blood Cell Count 8.15 K/mm3 (4.00-11.30)
[2021-12-13 08:43] LABS: Anion Gap 7 mmol/L (6-16); Blood Urea Nitrogen 8 mg/dL (8-24); Bun/Creatinine Ratio 15.2 (12.0-20.0); CO2, Blood 28 mmol/L (21-32); Calcium, Blood 9.2 mg/dL (8.5-10.1); Chloride, Blood 105 mmol/L (98-108); Creatinine, Blood 0.53 mg/dL (0.40-1.00); Glomerular Filtration Rate 95 (60-); Glucose, Blood 110 mg/dL (70-99); Magnesium, Blood 1.6 mg/dL (1.6-2.4); Phosphorus, Blood 1.8 mg/dL (2.5-4.9); Potassium, Blood 3.4 mmol/L (3.5-5.5); Sodium, Blood 140 mmol/L (136-145)
--- NOTE | 2021-12-13 16:59 | NUR ---
DAYSHIFT SUMMARY MD ordered Potassium & Magnesium IV infusion. Patient refused to take PO Potassium, reported too big to take. Patient sleeping in bed all day, poor intake, reported "can't keep breakfast down". No N/V reported or observed, no difficulty taking pills. Patient slept all day, woken up for meds, meals, and therapy. Pt worked with PT & walked hallway. OOB ambulated to BR, episodes of incontinence/loose stool today. Tele called and reported Afib rate 120s, patient resting comfrotably in bed, denied cardiac symptoms. Vitals stable.
--- NOTE | 2021-12-14 05:22 | NUR ---
SHIFT SUMMARY 76 YR F ADMITTED ON 12/09/21 FOR SEPSIS UTI. FULL CODE. PT REQUESTED TO BE REPOSITIONED OFTEN STATING THAT HER NECK AND BACK HURT. SHE IS ABLE TO GET UP TO BEDSIDE COMMODE W/ 2 PERSON ASSIST. SHE HAD NO ACUTE CHANGES THIS SHIFT AND WAS MEDICATED FOR PAIN PER EMAR. SHE IS A PLEASANT WOMAN AND IS COOPERATIVE WITH HER CARE.
--- NOTE | 2021-12-14 08:00 | NUR ---
PT PLEASANT COOP A/O X3 DENIES PAIN EXCEPT FOR RT UPPER ARM WHERE OLD IV INFILTRATE. PT ARM HAS BEEN SEEN BY DR BRAND. H/R IRREG. NO MURMER NOTED. PER TLE AFLUTTER AT 100. LUNGS CLEAR, RESP EASY, UNLABORED. PRESENTLY ON R/A. BT X4 LAST BM LOOSE YEST. IS ON BANANA FLAKE. VOIDS BSC 1-2 ASST. BED IN LOW POSITION ,CALL LITE IN REACH, CALLS APPPROP
[2021-12-14] MEDS ORDERED: BANATROL PLUS1 EAC1 PO (14:47)
[2021-12-14] MEDS ORDERED: DILT180 PO (14:48)
[2021-12-14] MEDS ORDERED: NITR100CA PO (14:49)
[2021-12-14] MEDS ORDERED: ONDA4 PO (14:50)
--- NOTE | 2021-12-14 16:20 | NUR ---
PT DISCHARGE REVIEWED WITH PT. SHE VERBALIZED UNDERSTANDING MEDS AND INST. PHA SENT SPECIAL DOSE FOR DERRELLITE QUENTINBID HANDED TO PT. TELE AND IV REMOVED BY AIDE. PT WHEELED TO DOOR AT 1622
== END 2021-12-14 16:21 | disposition home health service (06) | DRG 872 ==
LOC: ER 21:38 → PCU 12-09 05:02 → MEDS 12-12 14:55
PROVIDERS: Emergency Medicine; Family Medicine; Internal Medicine; Student in an Organized Health Care Education/Training Program; ADMIT Internal Medicine
DX: A41.81 Sepsis due to Enterococcus (principal); N39.0 Urinary tract infection, site not specified; I48.11 Longstanding persistent atrial fibrillation; M06.9 Rheumatoid arthritis, unspecified; I10 Essential (primary) hypertension; K21.9 Gastro-esophageal reflux disease without esophagitis; J45.909 Unspecified asthma, uncomplicated; Z20.822 Contact with and (suspected) exposure to COVID-19; K57.90 Diverticulosis of intestine, part unspecified, without perforation or abscess without bleeding; D64.9 Anemia, unspecified; Z96.651 Presence of right artificial knee joint; Z90.49 Acquired absence of other specified parts of digestive tract; Z90.710 Acquired absence of both cervix and uterus; Z98.890 Other specified postprocedural states; Z79.01 Long term (current) use of anticoagulants; Z88.8 Allergy status to other drugs, medicaments and biological substances; Z88.5 Allergy status to narcotic agent; Z88.0 Allergy status to penicillin; Z88.1 Allergy status to other antibiotic agents; Z79.51 Long term (current) use of inhaled steroids; Z79.02 Long term (current) use of antithrombotics/antiplatelets; Z79.891 Long term (current) use of opiate analgesic; Z87.19 Personal history of other diseases of the digestive system; Z79.899 Other long term (current) drug therapy
CPT/HCPCS: 0241U; 36415; 71046; 74177; 80053; 80069; 81001; 83690; 83735; 83880; 85025; 87077; 87086; 87186; 87493; 93005; 93010; 96361; 96374; 96375; 97110; 97116; 97162; 97165; 97530; 97535; 99285-25; A9270; C9113; J0282; J0696; J1650; J2405; J2765; J3475; J3480; J7030; J7040; J7060; J7512; Q9967

== ENCOUNTER → 2021-12-23 | Outpatient (CLI) | payer MEDICARE ==
[~2021-12-23] MED LIST changes: +BANATROL PLUS1 EAC1 PO; +DILT180 PO; +NITR100CA PO; +ONDA4 PO; +OXYC10TA19 PO; +TERIPARATIDE SC
== END | disposition home or self-care (01) ==
LOC: LAB SHORT 12:34
DX: N30.01 Acute cystitis with hematuria (principal)
CPT/HCPCS: 87086

== ENCOUNTER 2022-02-03 00:36 | Day surgery (SDC) | payer MEDICARE ==
[~2022-02-03 00:36] MED LIST changes: +FORTEO2.4 ML SC; +GABA300 PO; +MULVITA PO; +NYSTRIT TOP; +Prednisone10 MG PO
[2022-02-03 10:30] LABS: BASOPHILS ABSOLUTE AUTO 0.02 K/mm3 (0.00-0.23); BASOPHILS PERCENT AUTO 0 % (0-2); EOSINOPHILS ABSOLUTE AUTO 0.02 K/mm3 (0.00-0.68); EOSINOPHILS PERCENT AUTO 0 % (0-6); Hematocrit 22.3 % (33.0-51.0); Hemoglobin 7.2 g/dL (11.5-16.0); IMMATURE GRAN ABSOLUTE AUTO 0.07 K/mm3 (0.00-0.10); IMMATURE GRAN PERCENT AUTO 1 % (0-1); LYMPHOCYTES ABSOLUTE AUTO 0.46 K/mm3 (0.84-5.20); LYMPHOCYTES PERCENT AUTO 7 % (21-46); MONOCYTES ABSOLUTE AUTO 0.38 K/mm3 (0.16-1.47); MONOCYTES PERCENT AUTO 6 % (4-13); Mean Corpuscular HGB 35.5 pg (26.0-34.0); Mean Corpuscular HGB Conc 32.3 g/dL (31.5-36.5); Mean Corpuscular Volume 110 fL (80-100); Mean Platelet Volume 10.5 fL (9.1-12.4); NEUTROPHILS ABSOLUTE AUTO 5.64 K/mm3 (1.96-9.15); NEUTROPHILS PERCENT AUTO 86 % (41-73); NRBC ABSOLUTE 0.11 K/mm3 (0.00-0.02); NRBC Auto 1.7 /100 WBC (0.0-0.2); Platelet Count 287 K/mm3 (150-400); RDW Coefficient Variation 18.7 % (11.7-14.2); RDW Standard Deviation 74.1 fL (35.1-46.3); Red Blood Cell Count 2.03 M/mm3 (3.80-5.20); White Blood Cell Count 6.59 K/mm3 (4.00-11.30)
== END 2022-02-03 16:35 | disposition home or self-care (01) ==
LOC: LAB 00:36 → ATC 00:36
PROVIDERS: Surgery
DX: Z45.2 Encounter for adjustment and management of vascular access device (principal); Z01.818 Encounter for other preprocedural examination; N32.1 Vesicointestinal fistula; I50.32 Chronic diastolic (congestive) heart failure; E66.01 Morbid (severe) obesity due to excess calories; Z88.5 Allergy status to narcotic agent; Z88.0 Allergy status to penicillin; Z88.8 Allergy status to other drugs, medicaments and biological substances; Z91.09 Other allergy status, other than to drugs and biological substances
CPT/HCPCS: 85025; 86850; 86900; 86901; 86923; J7040; P9016

== ENCOUNTER 2022-02-04 05:49 | Inpatient (IN) | payer MEDICARE ==
[~2022-02-04] VITALS: Ht 160 cm; Wt 89.3 kg
[2022-02-04 07:19] LABS: BASOPHILS ABSOLUTE AUTO 0.02 K/mm3 (0.00-0.23); BASOPHILS PERCENT AUTO 0 % (0-2); EOSINOPHILS ABSOLUTE AUTO 0.02 K/mm3 (0.00-0.68); EOSINOPHILS PERCENT AUTO 0 % (0-6); Hematocrit 25.4 % (33.0-51.0); Hemoglobin 8.2 g/dL (11.5-16.0); IMMATURE GRAN ABSOLUTE AUTO 0.03 K/mm3 (0.00-0.10); IMMATURE GRAN PERCENT AUTO 0 % (0-1); LYMPHOCYTES ABSOLUTE AUTO 0.95 K/mm3 (0.84-5.20); LYMPHOCYTES PERCENT AUTO 12 % (21-46); MONOCYTES PERCENT AUTO 12 % (4-13); Mean Corpuscular HGB 34.3 pg (26.0-34.0); Mean Corpuscular HGB Conc 32.3 g/dL (31.5-36.5); Mean Corpuscular Volume 106 fL (80-100); Mean Platelet Volume 10.2 fL (9.1-12.4); NEUTROPHILS ABSOLUTE AUTO 5.76 K/mm3 (1.96-9.15); NEUTROPHILS PERCENT AUTO 75 % (41-73); NRBC ABSOLUTE 0.09 K/mm3 (0.00-0.02); NRBC Auto 1.2 /100 WBC (0.0-0.2); Platelet Count 313 K/mm3 (150-400); RDW Coefficient Variation 19.6 % (11.7-14.2); RDW Standard Deviation 75.3 fL (35.1-46.3); Red Blood Cell Count 2.39 M/mm3 (3.80-5.20); White Blood Cell Count 7.68 K/mm3 (4.00-11.30)
[2022-02-04 15:21] LABS: BASOPHILS ABSOLUTE AUTO 0.01 K/mm3 (0.00-0.23); BASOPHILS PERCENT AUTO 0 % (0-2); EOSINOPHILS PERCENT AUTO 0 % (0-6); Hematocrit 24.7 % (33.0-51.0); Hemoglobin 7.9 g/dL (11.5-16.0); IMMATURE GRAN ABSOLUTE AUTO 0.08 K/mm3 (0.00-0.10); IMMATURE GRAN PERCENT AUTO 1 % (0-1); LYMPHOCYTES ABSOLUTE AUTO 0.24 K/mm3 (0.84-5.20); LYMPHOCYTES PERCENT AUTO 2 % (21-46); MONOCYTES ABSOLUTE AUTO 0.54 K/mm3 (0.16-1.47); MONOCYTES PERCENT AUTO 4 % (4-13); Mean Corpuscular HGB 34.2 pg (26.0-34.0); Mean Corpuscular Volume 107 fL (80-100); Mean Platelet Volume 10.2 fL (9.1-12.4); NEUTROPHILS ABSOLUTE AUTO 12.96 K/mm3 (1.96-9.15); NEUTROPHILS PERCENT AUTO 94 % (41-73); NRBC ABSOLUTE 0.04 K/mm3 (0.00-0.02); NRBC Auto 0.3 /100 WBC (0.0-0.2); Platelet Count 270 K/mm3 (150-400); RDW Coefficient Variation 19.4 % (11.7-14.2); RDW Standard Deviation 76.4 fL (35.1-46.3); Red Blood Cell Count 2.31 M/mm3 (3.80-5.20); White Blood Cell Count 13.83 K/mm3 (4.00-11.30)
[2022-02-05 06:04] LABS: BASOPHILS ABSOLUTE AUTO 0.01 K/mm3 (0.00-0.23); BASOPHILS PERCENT AUTO 0 % (0-2); EOSINOPHILS PERCENT AUTO 0 % (0-6); Hematocrit 21.6 % (33.0-51.0); IMMATURE GRAN ABSOLUTE AUTO 0.03 K/mm3 (0.00-0.10); IMMATURE GRAN PERCENT AUTO 0 % (0-1); LYMPHOCYTES ABSOLUTE AUTO 0.72 K/mm3 (0.84-5.20); LYMPHOCYTES PERCENT AUTO 8 % (21-46); MONOCYTES ABSOLUTE AUTO 0.92 K/mm3 (0.16-1.47); MONOCYTES PERCENT AUTO 10 % (4-13); Mean Corpuscular HGB 34.5 pg (26.0-34.0); Mean Corpuscular HGB Conc 32.4 g/dL (31.5-36.5); Mean Corpuscular Volume 106 fL (80-100); Mean Platelet Volume 10.5 fL (9.1-12.4); NEUTROPHILS ABSOLUTE AUTO 7.46 K/mm3 (1.96-9.15); NEUTROPHILS PERCENT AUTO 82 % (41-73); NRBC ABSOLUTE 0.08 K/mm3 (0.00-0.02); NRBC Auto 0.9 /100 WBC (0.0-0.2); Platelet Count 249 K/mm3 (150-400); RDW Coefficient Variation 19.2 % (11.7-14.2); RDW Standard Deviation 74.2 fL (35.1-46.3); Red Blood Cell Count 2.03 M/mm3 (3.80-5.20); White Blood Cell Count 9.14 K/mm3 (4.00-11.30)
[2022-02-05 06:26] LABS: Bun/Creatinine Ratio 13.2 (12.0-20.0); Calcium, Blood 8.4 mg/dL (8.5-10.1); Creatinine, Blood 0.53 mg/dL (0.40-1.00); Potassium, Blood 3.6 mmol/L (3.5-5.5)
[2022-02-06 06:36] LABS: BASOPHILS ABSOLUTE AUTO 0.01 K/mm3 (0.00-0.23); BASOPHILS PERCENT AUTO 0 % (0-2); EOSINOPHILS ABSOLUTE AUTO 0.03 K/mm3 (0.00-0.68); EOSINOPHILS PERCENT AUTO 0 % (0-6); Hemoglobin 8.8 g/dL (11.5-16.0); IMMATURE GRAN ABSOLUTE AUTO 0.03 K/mm3 (0.00-0.10); IMMATURE GRAN PERCENT AUTO 0 % (0-1); LYMPHOCYTES ABSOLUTE AUTO 1.14 K/mm3 (0.84-5.20); LYMPHOCYTES PERCENT AUTO 13 % (21-46); MONOCYTES ABSOLUTE AUTO 1.08 K/mm3 (0.16-1.47); MONOCYTES PERCENT AUTO 12 % (4-13); Mean Corpuscular HGB 33.2 pg (26.0-34.0); Mean Corpuscular HGB Conc 31.4 g/dL (31.5-36.5); Mean Corpuscular Volume 106 fL (80-100); Mean Platelet Volume 10.4 fL (9.1-12.4); NEUTROPHILS ABSOLUTE AUTO 6.78 K/mm3 (1.96-9.15); NEUTROPHILS PERCENT AUTO 75 % (41-73); NRBC ABSOLUTE 0.05 K/mm3 (0.00-0.02); NRBC Auto 0.6 /100 WBC (0.0-0.2); Platelet Count 239 K/mm3 (150-400); RDW Coefficient Variation 19.3 % (11.7-14.2); RDW Standard Deviation 74.4 fL (35.1-46.3); Red Blood Cell Count 2.65 M/mm3 (3.80-5.20); White Blood Cell Count 9.07 K/mm3 (4.00-11.30)
[2022-02-06] MEDS ORDERED: ELIQUIS5 M2 PO (18:01)
[2022-02-06] MEDS ORDERED: TIADYLT ER360 MG PO (18:06)
[2022-02-07 04:56] LABS: BASOPHILS ABSOLUTE AUTO 0.01 K/mm3 (0.00-0.23); BASOPHILS PERCENT AUTO 0 % (0-2); EOSINOPHILS ABSOLUTE AUTO 0.06 K/mm3 (0.00-0.68); EOSINOPHILS PERCENT AUTO 1 % (0-6); Hematocrit 25.4 % (33.0-51.0); Hemoglobin 8.1 g/dL (11.5-16.0); IMMATURE GRAN ABSOLUTE AUTO 0.02 K/mm3 (0.00-0.10); IMMATURE GRAN PERCENT AUTO 0 % (0-1); LYMPHOCYTES ABSOLUTE AUTO 1.15 K/mm3 (0.84-5.20); LYMPHOCYTES PERCENT AUTO 15 % (21-46); MONOCYTES ABSOLUTE AUTO 0.84 K/mm3 (0.16-1.47); MONOCYTES PERCENT AUTO 11 % (4-13); Mean Corpuscular HGB 33.6 pg (26.0-34.0); Mean Corpuscular HGB Conc 31.9 g/dL (31.5-36.5); Mean Corpuscular Volume 105 fL (80-100); Mean Platelet Volume 10.2 fL (9.1-12.4); NEUTROPHILS ABSOLUTE AUTO 5.58 K/mm3 (1.96-9.15); NEUTROPHILS PERCENT AUTO 73 % (41-73); NRBC ABSOLUTE 0.04 K/mm3 (0.00-0.02); NRBC Auto 0.5 /100 WBC (0.0-0.2); Platelet Count 210 K/mm3 (150-400); RDW Coefficient Variation 17.8 % (11.7-14.2); RDW Standard Deviation 68.3 fL (35.1-46.3); Red Blood Cell Count 2.41 M/mm3 (3.80-5.20); White Blood Cell Count 7.66 K/mm3 (4.00-11.30)
[2022-02-07 05:57] LABS: Magnesium, Blood 1.5 mg/dL (1.6-2.4)
[2022-02-07 05:58] LABS: Bun/Creatinine Ratio 17.3 (12.0-20.0); Calcium, Blood 8.3 mg/dL (8.5-10.1); Creatinine, Blood 0.52 mg/dL (0.40-1.00); Potassium, Blood 4.2 mmol/L (3.5-5.5)
[2022-02-08 05:19] LABS: BASOPHILS ABSOLUTE AUTO 0.01 K/mm3 (0.00-0.23); BASOPHILS PERCENT AUTO 0 % (0-2); EOSINOPHILS ABSOLUTE AUTO 0.05 K/mm3 (0.00-0.68); EOSINOPHILS PERCENT AUTO 1 % (0-6); Hematocrit 26.5 % (33.0-51.0); Hemoglobin 8.5 g/dL (11.5-16.0); IMMATURE GRAN ABSOLUTE AUTO 0.04 K/mm3 (0.00-0.10); IMMATURE GRAN PERCENT AUTO 1 % (0-1); LYMPHOCYTES ABSOLUTE AUTO 1.04 K/mm3 (0.84-5.20); LYMPHOCYTES PERCENT AUTO 15 % (21-46); MONOCYTES ABSOLUTE AUTO 0.74 K/mm3 (0.16-1.47); MONOCYTES PERCENT AUTO 11 % (4-13); Mean Corpuscular HGB 33.6 pg (26.0-34.0); Mean Corpuscular HGB Conc 32.1 g/dL (31.5-36.5); Mean Corpuscular Volume 105 fL (80-100); Mean Platelet Volume 10.5 fL (9.1-12.4); NEUTROPHILS ABSOLUTE AUTO 5.11 K/mm3 (1.96-9.15); NEUTROPHILS PERCENT AUTO 73 % (41-73); NRBC ABSOLUTE 0.05 K/mm3 (0.00-0.02); NRBC Auto 0.7 /100 WBC (0.0-0.2); Platelet Count 254 K/mm3 (150-400); RDW Coefficient Variation 17.4 % (11.7-14.2); RDW Standard Deviation 66.4 fL (35.1-46.3); Red Blood Cell Count 2.53 M/mm3 (3.80-5.20); White Blood Cell Count 6.99 K/mm3 (4.00-11.30)
[2022-02-08 05:43] LABS: Albumin, Blood 2.3 g/dL (3.4-5.0); Albumin/Globulin Ratio 0.9 (0.8-1.8); Bilirubin, Total 1.1 mg/dL (0.1-1.0); Bun/Creatinine Ratio 10.9 (12.0-20.0); Calcium, Blood 8.6 mg/dL (8.5-10.1); Creatinine, Blood 0.55 mg/dL (0.40-1.00); Globulin, Blood 2.5 g/dL (2.2-4.0); Magnesium, Blood 1.4 mg/dL (1.6-2.4); Potassium, Blood 4.1 mmol/L (3.5-5.5); Total Protein, Blood 4.8 g/dL (6.4-8.2)
[2022-02-09 06:27] LABS: BASOPHILS ABSOLUTE AUTO 0.03 K/mm3 (0.00-0.23); BASOPHILS PERCENT AUTO 0 % (0-2); EOSINOPHILS ABSOLUTE AUTO 0.08 K/mm3 (0.00-0.68); EOSINOPHILS PERCENT AUTO 1 % (0-6); Hematocrit 27.4 % (33.0-51.0); Hemoglobin 8.8 g/dL (11.5-16.0); IMMATURE GRAN ABSOLUTE AUTO 0.05 K/mm3 (0.00-0.10); IMMATURE GRAN PERCENT AUTO 1 % (0-1); LYMPHOCYTES ABSOLUTE AUTO 1.56 K/mm3 (0.84-5.20); LYMPHOCYTES PERCENT AUTO 17 % (21-46); MONOCYTES ABSOLUTE AUTO 0.98 K/mm3 (0.16-1.47); MONOCYTES PERCENT AUTO 10 % (4-13); Mean Corpuscular HGB 33.7 pg (26.0-34.0); Mean Corpuscular HGB Conc 32.1 g/dL (31.5-36.5); Mean Corpuscular Volume 105 fL (80-100); Mean Platelet Volume 10.6 fL (9.1-12.4); NEUTROPHILS PERCENT AUTO 71 % (41-73); NRBC ABSOLUTE 0.05 K/mm3 (0.00-0.02); NRBC Auto 0.5 /100 WBC (0.0-0.2); Platelet Count 286 K/mm3 (150-400); RDW Coefficient Variation 17.3 % (11.7-14.2); Red Blood Cell Count 2.61 M/mm3 (3.80-5.20)
[2022-02-09 06:56] LABS: Albumin, Blood 2.5 g/dL (3.4-5.0); Bun/Creatinine Ratio 10.2 (12.0-20.0); Calcium, Blood 8.8 mg/dL (8.5-10.1); Creatinine, Blood 0.59 mg/dL (0.40-1.00); Globulin, Blood 2.6 g/dL (2.2-4.0); Magnesium, Blood 1.7 mg/dL (1.6-2.4); Potassium, Blood 3.7 mmol/L (3.5-5.5); Total Protein, Blood 5.1 g/dL (6.4-8.2)
[2022-02-10 08:09] LABS: Hematocrit 28.2 % (33.0-51.0); Mean Corpuscular HGB 33.7 pg (26.0-34.0); Mean Corpuscular HGB Conc 31.9 g/dL (31.5-36.5); Mean Corpuscular Volume 106 fL (80-100); Mean Platelet Volume 10.5 fL (9.1-12.4); NRBC ABSOLUTE 0.09 K/mm3 (0.00-0.02); NRBC Auto 0.8 /100 WBC (0.0-0.2); Platelet Count 331 K/mm3 (150-400); RDW Coefficient Variation 17.7 % (11.7-14.2); RDW Standard Deviation 67.8 fL (35.1-46.3); Red Blood Cell Count 2.67 M/mm3 (3.80-5.20)
[2022-02-11 04:48] LABS: Hemoglobin 7.7 g/dL (11.5-16.0); Mean Corpuscular HGB 34.1 pg (26.0-34.0); Mean Corpuscular HGB Conc 32.1 g/dL (31.5-36.5); Mean Corpuscular Volume 106 fL (80-100); Mean Platelet Volume 10.6 fL (9.1-12.4); NRBC ABSOLUTE 0.07 K/mm3 (0.00-0.02); NRBC Auto 0.9 /100 WBC (0.0-0.2); Platelet Count 285 K/mm3 (150-400); RDW Coefficient Variation 17.9 % (11.7-14.2); RDW Standard Deviation 68.8 fL (35.1-46.3); Red Blood Cell Count 2.26 M/mm3 (3.80-5.20); White Blood Cell Count 7.63 K/mm3 (4.00-11.30)
== END 2022-02-11 10:30 | disposition home or self-care (01) | DRG 330 ==
LOC: SURS 05:49 → PRE IP 07:30 → SURS 14:43
PROVIDERS: Hospitalist; ADMIT Surgery
PROC: 30233N1 Transfusion of Nonautologous Red Blood Cells into Peripheral Vein, Percutaneous Approach (ICD-10-PCS; 2022-02-04)
PROC: 8E0W4CZ Robotic Assisted Procedure of Trunk Region, Percutaneous Endoscopic Approach (ICD-10-PCS; 2022-02-04)
PROC: 0DBN4ZZ Excision of Sigmoid Colon, Percutaneous Endoscopic Approach (ICD-10-PCS; principal; 2022-02-04 08:30)
PROC: 06BY0ZC Excision of Hemorrhoidal Plexus, Open Approach (ICD-10-PCS; 2022-02-04 08:30)
DX: K57.30 Diverticulosis of large intestine without perforation or abscess without bleeding (principal); D62 Acute posthemorrhagic anemia; N32.1 Vesicointestinal fistula; I48.20 Chronic atrial fibrillation, unspecified; I50.32 Chronic diastolic (congestive) heart failure; K64.8 Other hemorrhoids; J30.9 Allergic rhinitis, unspecified; M54.50 Low back pain, unspecified; G89.29 Other chronic pain; F32.A Depression, unspecified; K21.9 Gastro-esophageal reflux disease without esophagitis; E78.00 Pure hypercholesterolemia, unspecified; I11.0 Hypertensive heart disease with heart failure; G47.00 Insomnia, unspecified; E66.01 Morbid (severe) obesity due to excess calories; G47.33 Obstructive sleep apnea (adult) (pediatric); M19.90 Unspecified osteoarthritis, unspecified site; K64.4 Residual hemorrhoidal skin tags; M81.0 Age-related osteoporosis without current pathological fracture; M06.9 Rheumatoid arthritis, unspecified; Z96.653 Presence of artificial knee joint, bilateral; M85.80 Other specified disorders of bone density and structure, unspecified site; F41.9 Anxiety disorder, unspecified; M79.7 Fibromyalgia; J98.4 Other disorders of lung; E83.42 Hypomagnesemia; J44.9 Chronic obstructive pulmonary disease, unspecified; Z87.81 Personal history of (healed) traumatic fracture; Z85.6 Personal history of leukemia; Z98.890 Other specified postprocedural states; Z90.49 Acquired absence of other specified parts of digestive tract; Z90.710 Acquired absence of both cervix and uterus; Z90.721 Acquired absence of ovaries, unilateral; Z79.51 Long term (current) use of inhaled steroids; Z79.899 Other long term (current) drug therapy; Z79.01 Long term (current) use of anticoagulants; Z79.02 Long term (current) use of antithrombotics/antiplatelets; Z79.52 Long term (current) use of systemic steroids; Z88.8 Allergy status to other drugs, medicaments and biological substances; Z88.5 Allergy status to narcotic agent; Z88.1 Allergy status to other antibiotic agents; Z88.0 Allergy status to penicillin; Z87.440 Personal history of urinary (tract) infections; Z68.34 Body mass index [BMI] 34.0-34.9, adult
CPT/HCPCS: 51610; 74450; 80048; 80053; 83735; 85025; 85027; 86850; 86900; 86901; 86923; 88304; 88307; 93005; 93010; 94640; 94664; 94760; 97110; 97116; 97162; 97165; 97530; 97535; A9270; J0694; J1030; J1644; J1650; J2250; J2370; J2405; J2550; J2704; J2795; J2930; J3010; J3370; J3475; J7030; J7040; J7060; J7120; J7512; P9016; Q9967

== ENCOUNTER → 2022-07-07 | Outpatient (CLI) | payer MEDICARE ==
[~2022-07-07] MED LIST changes: +TIADYLT ER360 MG PO
== END | disposition home or self-care (01) ==
LOC: LAB SHORT 14:35
DX: R22.31 Localized swelling, mass and lump, right upper limb (principal); M79.5 Residual foreign body in soft tissue
CPT/HCPCS: 88304

== ENCOUNTER → 2022-07-09 | Outpatient (CLI) | payer MEDICARE ==
[2022-07-09 19:31] LABS: Hematocrit 24.5 % (33.0-51.0); Mean Corpuscular HGB 35.1 pg (26.0-34.0); Mean Corpuscular HGB Conc 32.7 g/dL (31.5-36.5); Mean Corpuscular Volume 108 fL (80-100); Mean Platelet Volume 11.4 fL (9.1-12.4); Platelet Count 345 K/mm3 (150-400); RDW Coefficient Variation 19.8 % (11.7-14.2); RDW Standard Deviation 76.2 fL (35.1-46.3); Red Blood Cell Count 2.28 M/mm3 (3.80-5.20)
[2022-07-09 21:21] LABS: Albumin, Blood 3.7 g/dL (3.4-5.0); Albumin/Globulin Ratio 1.5 (0.8-1.8); Bilirubin, Total 1.2 mg/dL (0.1-1.0); Bun/Creatinine Ratio 21.4 (12.0-20.0); Calcium, Blood 10.1 mg/dL (8.5-10.1); Creatinine, Blood 0.75 mg/dL (0.40-1.00); Globulin, Blood 2.4 g/dL (2.2-4.0); Potassium, Blood 4.1 mmol/L (3.5-5.5); Total Protein, Blood 6.1 g/dL (6.4-8.2)
== END | disposition home or self-care (01) ==
LOC: LAB SHORT 17:36 → LAB 17:36
PROVIDERS: Internal Medicine Rheumatology
DX: M06.9 Rheumatoid arthritis, unspecified (principal)
CPT/HCPCS: 80053; 85025; 85651

== ENCOUNTER 2023-01-27 13:20 | Emergency (ER) | payer MEDICARE ==
[~2023-01-27] VITALS: Ht 160 cm; Wt 79.8 kg
[2023-01-27 14:38] LABS: BASOPHILS ABSOLUTE AUTO 0.02 K/mm3 (0.00-0.23); BASOPHILS PERCENT AUTO 0 % (0-2); EOSINOPHILS ABSOLUTE AUTO 0.02 K/mm3 (0.00-0.68); EOSINOPHILS PERCENT AUTO 0 % (0-6); Hematocrit 27.8 % (33.0-51.0); Hemoglobin 8.9 g/dL (11.5-16.0); IMMATURE GRAN ABSOLUTE AUTO 0.03 K/mm3 (0.00-0.10); IMMATURE GRAN PERCENT AUTO 1 % (0-1); LYMPHOCYTES ABSOLUTE AUTO 0.49 K/mm3 (0.84-5.20); LYMPHOCYTES PERCENT AUTO 8 % (21-46); MONOCYTES ABSOLUTE AUTO 0.18 K/mm3 (0.16-1.47); MONOCYTES PERCENT AUTO 3 % (4-13); Mean Corpuscular HGB 35.2 pg (26.0-34.0); Mean Corpuscular Volume 110 fL (80-100); Mean Platelet Volume 10.5 fL (9.1-12.4); NEUTROPHILS ABSOLUTE AUTO 5.41 K/mm3 (1.96-9.15); NEUTROPHILS PERCENT AUTO 88 % (41-73); NRBC ABSOLUTE 0.03 K/mm3 (0.00-0.02); NRBC Auto 0.5 /100 WBC (0.0-0.2); Platelet Count 302 K/mm3 (150-400); RDW Coefficient Variation 19.4 % (11.7-14.2); RDW Standard Deviation 77.6 fL (35.1-46.3); Red Blood Cell Count 2.53 M/mm3 (3.80-5.20); White Blood Cell Count 6.15 K/mm3 (4.00-11.30)
[2023-01-27 15:16] LABS: Albumin, Blood 3.6 g/dL (3.4-5.0); Albumin/Globulin Ratio 1.6 (0.8-1.8); Bilirubin, Direct 0.3 mg/dL (0.0-0.3); Bilirubin, Indirect 0.7 mg/dL (0.1-0.7); Bun/Creatinine Ratio 27.5 (12.0-20.0); Calcium, Blood 9.4 mg/dL (8.5-10.1); Creatinine, Blood 0.69 mg/dL (0.40-1.00); Globulin, Blood 2.3 g/dL (2.2-4.0); Phosphorus, Blood 2.4 mg/dL (2.5-4.9); Potassium, Blood 4.1 mmol/L (3.5-5.5); Total Protein, Blood 5.9 g/dL (6.4-8.2)
[2023-01-27 15:30] VITALS: BP 96/55
[2023-01-27] MEDS ORDERED: ACET500 PO (17:35)
== END 2023-01-27 17:43 | disposition home or self-care (01) ==
LOC: ER 13:20
PROVIDERS: Emergency Medicine
DX: S46.911A Strain of unspecified muscle, fascia and tendon at shoulder and upper arm level, right arm, initial encounter (principal); X58.XXXA Exposure to other specified factors, initial encounter; Z88.8 Allergy status to other drugs, medicaments and biological substances; Z88.0 Allergy status to penicillin; Z88.1 Allergy status to other antibiotic agents; Z88.5 Allergy status to narcotic agent; Z79.899 Other long term (current) drug therapy; Z79.52 Long term (current) use of systemic steroids; J45.909 Unspecified asthma, uncomplicated; K21.9 Gastro-esophageal reflux disease without esophagitis; I48.91 Unspecified atrial fibrillation
CPT/HCPCS: 71046; 73030; 80048; 80076; 83735; 84100; 84484; 85025; 99284-25; A9270

== ENCOUNTER 2023-08-18 13:56 | Observation (INO) | payer MEDICARE ==
[~2023-08-18] VITALS: Ht 160 cm; Wt 85.7 kg
[2023-08-18 14:51] LABS: Hematocrit 29.5 % (33.0-51.0); Hemoglobin 9.5 g/dL (11.5-16.0); Mean Corpuscular HGB 37.7 pg (26.0-34.0); Mean Corpuscular HGB Conc 32.2 g/dL (31.5-36.5); Mean Corpuscular Volume 117 fL (80-100); Mean Platelet Volume 10.3 fL (9.1-12.4); NRBC ABSOLUTE 0.03 K/mm3 (0.00-0.02); NRBC Auto 0.4 /100 WBC (0.0-0.2); Platelet Count 351 K/mm3 (150-400); RDW Coefficient Variation 19.1 % (11.7-14.2); RDW Standard Deviation 82.3 fL (35.1-46.3); Red Blood Cell Count 2.52 M/mm3 (3.80-5.20); White Blood Cell Count 7.86 K/mm3 (4.00-11.30)
[2023-08-18] MEDS ORDERED: NS 1,000 ML IV SCH (15:10)
[2023-08-18] MEDS ORDERED: Diltiazem HCl 5 MG / ML 5ML Vial IV ONE ×2 (15:10→16:45)
[2023-08-18 15:21] LABS: BAND PERCENT MAN 3 % (0-8); BASOPHILS PERCENT MAN 0 % (0-2); EOSINOPHILS PERCENT MAN 0 % (0-6); LYMPHOCYTES ABSOLUTE MAN 0.39 K/mm3 (0.84-5.20); LYMPHOCYTES PERCENT MAN 5 % (21-46); MONOCYTES ABSOLUTE MAN 0.07 K/mm3 (0.16-1.47); MONOCYTES PERCENT MAN 1 % (4-13); NEUTROPHILS ABSOLUTE MAN 7.38 K/mm3 (1.96-9.15); SEG NEUTROPHILS PERCENT MAN 91 % (41-73); TOTAL CELLS COUNTED 100
[2023-08-18 15:29] LABS: Albumin, Blood 3.7 g/dL (3.4-5.0); Albumin/Globulin Ratio 1.8 (0.8-1.8); Bilirubin, Total 1.1 mg/dL (0.1-1.0); Bun/Creatinine Ratio 31.5 (12.0-20.0); Calcium, Blood 9.2 mg/dL (8.5-10.1); Creatinine, Blood 0.73 mg/dL (0.40-1.00); Globulin, Blood 2.1 g/dL (2.2-4.0); Thyroid Stimulating Hormone 0.421 uIU/mL (0.360-4.800); Total Protein, Blood 5.8 g/dL (6.4-8.2)
[2023-08-18] MEDS ORDERED: dilTIAZem HCL 125 MG in Dextrose 5% 100 ML IV SCH (16:20)
[2023-08-18] MEDS ORDERED: Acetaminophen 325 MG TABLET PO PRN (18:20)
[2023-08-18] MEDS ORDERED: FLU VACC QS2023-24(6MOS UP)/PF 60 MCG/0.5 ML SYRINGE IM SCH (18:20)
[2023-08-18] MEDS ORDERED: Ondansetron HCl 2 MG / ML 2ML Vial IV PRN (18:25)
[2023-08-18] MEDS ORDERED: Albuterol HFA200 ACT/6.7 GM INH INH PRN (18:35)
[2023-08-18] MEDS ORDERED: Furosemide 10 MG/ML 4ML Vial IV ONE ×2 (19:00→21:25)
[2023-08-18 20:02] VITALS: BP 123/88
[2023-08-18] MEDS ORDERED: Lopressor 50 mg50 MG PO (20:10)
[2023-08-18] MEDS ORDERED: ACET500 PO (20:17)
--- NOTE | 2023-08-18 20:48 | NUR ---
UPDATE MEDICATION LIST, NOTIFIED PROVIDER, NEW ORDERS ENTERED.
[2023-08-18 21:00] VITALS: BP 124/64
[2023-08-18] MEDS ORDERED: oxyBUTYnin chloride 5 MG TAB PO SCH (21:00)
[2023-08-18] MEDS ORDERED: Montelukast Sodium 10 MG Tab PO SCH (21:00)
[2023-08-18] MEDS ORDERED: Atorvastatin 40 MG Tab PO SCH (21:00)
[2023-08-18] MEDS ORDERED: Apixaban 5 MG Tab PO SCH (21:00)
[2023-08-18] MEDS ORDERED: Gabapentin 300 MG Cap PO SCH ×2 (21:00)
[2023-08-18] MEDS ORDERED: Metoprolol Tartrate 50 MG Tab PO SCH (21:00)
[2023-08-18 21:50] VITALS: BP 124/63
[2023-08-18 22:00] VITALS: BP 131/78
[2023-08-19] VITALS: BP 123/61
[2023-08-19 02:04] VITALS: BP 103/63
[2023-08-19 04:00] VITALS: BP 111/54
[2023-08-19 04:19] LABS: BASOPHILS ABSOLUTE AUTO 0.02 K/mm3 (0.00-0.23); BASOPHILS PERCENT AUTO 0 % (0-2); EOSINOPHILS ABSOLUTE AUTO 0.24 K/mm3 (0.00-0.68); EOSINOPHILS PERCENT AUTO 4 % (0-6); Hematocrit 25.8 % (33.0-51.0); Hemoglobin 8.4 g/dL (11.5-16.0); IMMATURE GRAN ABSOLUTE AUTO 0.03 K/mm3 (0.00-0.10); IMMATURE GRAN PERCENT AUTO 1 % (0-1); LYMPHOCYTES PERCENT AUTO 23 % (21-46); MONOCYTES ABSOLUTE AUTO 0.19 K/mm3 (0.16-1.47); MONOCYTES PERCENT AUTO 3 % (4-13); Mean Corpuscular HGB 37.8 pg (26.0-34.0); Mean Corpuscular HGB Conc 32.6 g/dL (31.5-36.5); Mean Corpuscular Volume 116 fL (80-100); Mean Platelet Volume 10.6 fL (9.1-12.4); NEUTROPHILS PERCENT AUTO 68 % (41-73); NRBC ABSOLUTE 0.02 K/mm3 (0.00-0.02); NRBC Auto 0.4 /100 WBC (0.0-0.2); Platelet Count 307 K/mm3 (150-400); RDW Coefficient Variation 18.7 % (11.7-14.2); RDW Standard Deviation 79.4 fL (35.1-46.3); Red Blood Cell Count 2.22 M/mm3 (3.80-5.20); White Blood Cell Count 5.58 K/mm3 (4.00-11.30)
[2023-08-19 04:47] LABS: Bun/Creatinine Ratio 34.4 (12.0-20.0); Creatinine, Blood 0.61 mg/dL (0.40-1.00); Potassium, Blood 3.5 mmol/L (3.5-5.5)
[2023-08-19] MEDS ORDERED: Omeprazole 20 MG CapCR PO SCH (06:00)
--- NOTE | 2023-08-19 06:02 | NUR ---
SHIFT SUMMARY PATIENT ARRIVED TO PCU 13 VIA STRETCHER SHORTLY BEFORE 1999. SHE IS ALERT AND ORIENTED X4, IS INDEPENDENT TO THE BEDSIDE COMMODE AND USES A WALKER AT BASELINE. PATIENT ARRIVED ON A CARDIZEM DRIP RUNNING AT 5 MG/HR AND AFIB 100-110'S. THE CARDIZEM DRIP WAS TURNED OFF AT 0200 THE PATIENT'S HEART RATE WAS SUSTAINING IN THE 80'S-90'S. PATIENT CURRENTLY 90-100'S, INCREASED TO 120 WHEN SHE GOT UP TO THE BEDSIDE COMMODE BUT QUICKLY RECOVERED. PATIENT HAD NO COMPLAINTS OF PIAN OR SHORTNESS OF BREATH. ON ROOM AIR, BLOOD PRESSURE STABLE. WILL CONTINUE TO MONITOR. CALL LIGHT WITHIN REACH.
--- NOTE | 2023-08-19 07:59 | NUR ---
AM ASSESSMENT: Pt resiting in bed. Denies CP, states a little SOB. Tele shows HR afib in the 110's. LS clear. BT positive. Pulses palp. +2 pitting edema to BLE, pt states that she often has edema to BLE. VSS. Pt medicated with metoprolol per orders for HR. Cardizem gtt has been of since last noc. Call light in reach. Will continue to monitor.
[2023-08-19 08:00] VITALS: BP 127/92
[2023-08-19] MEDS ORDERED: Folic Acid 1 MG TAB PO SCH (09:00)
[2023-08-19] MEDS ORDERED: Furosemide 40 MG Tab PO SCH (09:00)
[2023-08-19] MEDS ORDERED: Potassium Chloride 20 MEQ TabCR PO SCH ×2 (09:00)
[2023-08-19] MEDS ORDERED: Atorvastatin 40 MG Tab PO SCH (09:00)
[2023-08-19] MEDS ORDERED: Metoprolol Tartrate 25 MG Tab PO ONE (09:00)
[2023-08-19] MEDS ORDERED: PredniSONE 10 MG Tab PO SCH (09:00)
[2023-08-19 11:30] VITALS: BP 107/75
--- NOTE | 2023-08-19 13:30 | NUR ---
UPdate- Pt up and ambulated in hallway with one person SBA and walker. Ambulated over 100ft. HR went up to 120-125. Pt states that she felt a litle tired but not as SOB as she normally feels. C/O some shoulder pain that is chronic. Medicated with tylenol. Pt back to bed and resting after ambulation. Stable at this time. Will continue to monitor.
--- NOTE | 2023-08-19 14:19 | NUR ---
Patient is lying in bed and alert. Patient tells me about her medical history, the current objectives and her goal of going home tomorrow. She then talks about her family (dtr local and son out of state), the of her spouse of spouse of 57 yrs (4 yrs ago) and the life that she enjoys at [facility]. She also shares about her spiritual journey and her amrik has been so meaningful to her over the yrs and continues to be in this season. She talks about her little dog that she misses greatly. I Provide therapeutic listening, grief support and prayer. Patient responded well and showed signs of greater peace and of being encouraged in her amrik.
[2023-08-19 15:15] VITALS: BP 121/80
--- NOTE | 2023-08-19 15:15 | NUR ---
DISCHARGE: Pt was given printed and written discharge instructions. Verbalized understanding, denies questions. IV was discontinued, cath intact. Pt instructed to f/u with pcp within 2 weeks and to call for an appointment. Pt left via w/c. Stable at time of discharge.
[2023-08-19] MEDS ORDERED: METO50 PO (15:17)
[2023-08-19] MEDS ORDERED: Metoprolol Tartrate 50 MG Tab PO SCH (21:00)
[2023-08-21] MEDS ORDERED: Methotrexate Sod 2.5 MG Tab PO SCH (18:30)
== END 2023-08-19 15:47 | disposition home or self-care (01) ==
LOC: ER 13:56 → PCU 13:57
PROVIDERS: Nurse Practitioner Acute Care; Student in an Organized Health Care Education/Training Program; ADMIT Student in an Organized Health Care Education/Training Program
DX: I48.91 Unspecified atrial fibrillation (principal); J45.909 Unspecified asthma, uncomplicated; K21.9 Gastro-esophageal reflux disease without esophagitis; I10 Essential (primary) hypertension; E78.5 Hyperlipidemia, unspecified; M06.9 Rheumatoid arthritis, unspecified; Z88.0 Allergy status to penicillin; Z88.5 Allergy status to narcotic agent; Z88.1 Allergy status to other antibiotic agents; Z88.6 Allergy status to analgesic agent; Z79.01 Long term (current) use of anticoagulants; Z79.899 Other long term (current) drug therapy
CPT/HCPCS: 36415; 71045; 74177; 80048; 80053; 83690; 83735; 83880; 84443; 84484; 85025; 94762; 96361; 96365-59; 96366; 96376; 99285-25; A9270; J1940; J7030; J7512; Q9967

== ENCOUNTER 2024-02-15 14:04 | Inpatient (IN) | payer MEDICARE ==
[~2024-02-15] VITALS: Ht 162.6 cm; Wt 93.8 kg
[~2024-02-15 14:04] MED LIST changes: +AIRDUO DIGIHAL1 EAC2 INH; +HYDR1TAB94 PO; +LIDOCAINE1 EAC1 TOP; +Lopressor 50 mg50 MG PO; +MUPIROCIN2210 TP; +PRED20
[2024-02-15 15:00] LABS: BASOPHILS ABSOLUTE AUTO 0.03 K/mm3 (0.00-0.23); BASOPHILS PERCENT AUTO 0 % (0-2); EOSINOPHILS PERCENT AUTO 0 % (0-6); Hematocrit 30.7 % (33.0-51.0); Hemoglobin 9.9 g/dL (11.5-16.0); IMMATURE GRAN ABSOLUTE AUTO 0.07 K/mm3 (0.00-0.10); IMMATURE GRAN PERCENT AUTO 1 % (0-1); LYMPHOCYTES ABSOLUTE AUTO 0.67 K/mm3 (0.84-5.20); LYMPHOCYTES PERCENT AUTO 5 % (21-46); MONOCYTES ABSOLUTE AUTO 0.42 K/mm3 (0.16-1.47); MONOCYTES PERCENT AUTO 3 % (4-13); Mean Corpuscular HGB 36.9 pg (26.0-34.0); Mean Corpuscular HGB Conc 32.2 g/dL (31.5-36.5); Mean Corpuscular Volume 115 fL (80-100); Mean Platelet Volume 10.5 fL (9.1-12.4); NEUTROPHILS ABSOLUTE AUTO 12.18 K/mm3 (1.96-9.15); NEUTROPHILS PERCENT AUTO 91 % (41-73); NRBC ABSOLUTE 0.06 K/mm3 (0.00-0.02); NRBC Auto 0.4 /100 WBC (0.0-0.2); Platelet Count 384 K/mm3 (150-400); RDW Coefficient Variation 19.2 % (11.7-14.2); Red Blood Cell Count 2.68 M/mm3 (3.80-5.20); White Blood Cell Count 13.37 K/mm3 (4.00-11.30)
[2024-02-15 15:18] LABS: Albumin, Blood 3.8 g/dL (3.4-5.0); Albumin/Globulin Ratio 1.5 (0.8-1.8); Bilirubin, Total 1.6 mg/dL (0.1-1.0); Bun/Creatinine Ratio 36.7 (12.0-20.0); Calcium, Blood 9.3 mg/dL (8.5-10.1); Creatinine, Blood 0.57 mg/dL (0.40-1.00); Globulin, Blood 2.6 g/dL (2.2-4.0); Potassium, Blood 5.1 mmol/L (3.5-5.5); Total Protein, Blood 6.4 g/dL (6.4-8.2)
[2024-02-15] MEDS ORDERED: Furosemide 10 MG/ML 4ML Vial IV ONE (17:10)
[2024-02-15] MEDS ORDERED: Acetaminophen 325 MG TABLET PO PRN (20:05)
[2024-02-15 20:37] LABS: Source, Urine Clean Catch
[2024-02-15 20:43] LABS: Appearance, Urine Turbid (Clear); Bilirubin, Urine Neg (Neg); Blood, Urine Neg (Neg); Color, Urine Yellow (P-Yellow); Glucose Qualitative, Urine Neg (Neg); Ketones, Urine Neg (Neg); Leukocyte Esterase, Urine Neg (Neg); Nitrite, Urine Neg (Neg); Protein, Urine 2+ (Neg); Urobilinogen, Urine 1+ (Normal)
[2024-02-15 20:53] LABS: Amorphous Heavy (0-Heavy); Bacteria Mod /hpf; Red Blood Cells, Urine 0-2 /hpf (0-2); Squamous Epithelial Cells Few /hpf (Few)
[2024-02-15] MEDS ORDERED: Apixaban 5 MG Tab PO SCH (21:00)
[2024-02-15] MEDS ORDERED: Furosemide 10 MG/ML 4ML Vial IV SCH (22:00)
[2024-02-15] MEDS ORDERED: PRED5 PO (22:40)
[2024-02-15 22:57] LABS: Magnesium, Blood 2.3 mg/dL (1.6-2.4)
[2024-02-15] MEDS ORDERED: Gabapentin 300 MG Cap PO SCH (23:00)
[2024-02-15] MEDS ORDERED: Mometasone/Formoterol MDI 100/5 mcg 13 GM INH SCH (23:00)
[2024-02-15] MEDS ORDERED: Atorvastatin 10 MG Tab PO SCH (23:00)
[2024-02-15] MEDS ORDERED: Metoprolol Tartrate 50 MG Tab PO SCH (23:00)
[2024-02-15 23:44] VITALS: BP 113/63
[2024-02-16 04:00] VITALS: BP 114/54
[2024-02-16 04:52] LABS: BASOPHILS ABSOLUTE AUTO 0.03 K/mm3 (0.00-0.23); BASOPHILS PERCENT AUTO 0 % (0-2); EOSINOPHILS ABSOLUTE AUTO 0.14 K/mm3 (0.00-0.68); EOSINOPHILS PERCENT AUTO 2 % (0-6); Hematocrit 30.7 % (33.0-51.0); Hemoglobin 9.9 g/dL (11.5-16.0); IMMATURE GRAN ABSOLUTE AUTO 0.03 K/mm3 (0.00-0.10); IMMATURE GRAN PERCENT AUTO 0 % (0-1); LYMPHOCYTES ABSOLUTE AUTO 1.41 K/mm3 (0.84-5.20); LYMPHOCYTES PERCENT AUTO 19 % (21-46); MONOCYTES ABSOLUTE AUTO 0.44 K/mm3 (0.16-1.47); MONOCYTES PERCENT AUTO 6 % (4-13); Mean Corpuscular HGB 36.4 pg (26.0-34.0); Mean Corpuscular HGB Conc 32.2 g/dL (31.5-36.5); Mean Corpuscular Volume 113 fL (80-100); NEUTROPHILS PERCENT AUTO 72 % (41-73); NRBC ABSOLUTE 0.02 K/mm3 (0.00-0.02); NRBC Auto 0.3 /100 WBC (0.0-0.2); Platelet Count 343 K/mm3 (150-400); RDW Coefficient Variation 18.9 % (11.7-14.2); RDW Standard Deviation 77.4 fL (35.1-46.3); Red Blood Cell Count 2.72 M/mm3 (3.80-5.20); White Blood Cell Count 7.35 K/mm3 (4.00-11.30)
[2024-02-16 05:12] LABS: Albumin, Blood 3.8 g/dL (3.4-5.0); Albumin/Globulin Ratio 1.7 (0.8-1.8); Bilirubin, Total 2.3 mg/dL (0.1-1.0); Bun/Creatinine Ratio 30.7 (12.0-20.0); Calcium, Blood 9.4 mg/dL (8.5-10.1); Creatinine, Blood 0.62 mg/dL (0.40-1.00); Globulin, Blood 2.3 g/dL (2.2-4.0); Potassium, Blood 3.4 mmol/L (3.5-5.5); Total Protein, Blood 6.1 g/dL (6.4-8.2)
[2024-02-16] MEDS ORDERED: Omeprazole 20 MG CapCR PO SCH (06:00)
--- NOTE | 2024-02-16 08:00 | NUR ---
INITIAL ASSESSMENT: Patient is lying in bed with her eyes closed, she wakes easily to verbal stimuli. She is alert and oriented x4. She denies pain at this time. She states she has been having some soreness in her neck and states she "tweaked my left rib." She is in A-Fib in the 80s-90s, BP stable. She denies chest pain or pressure. LS DIM T/O, patient is low 90s on RA, she states she trialed a C-Pap at HS at home and could not tolerate it, she states she just sleeps in her recliner and that, "seems to be fine." BT. She has a pure wick in place draining clear yellow urine. Patient states she had a fall back in August and she hurt her right ankle and knee, since then she has been having difficulty with her mobility. Patient states she was doing home health PT and that was helping. She also states she has not had very much energy to perfrom ADLs lately.
[2024-02-16] MEDS ORDERED: Potassium Chloride 20 MEQ TabCR PO ONE (08:05)
[2024-02-16 08:07] VITALS: BP 106/56
[2024-02-16] MEDS ORDERED: Folic Acid 1 MG TAB PO SCH (09:00)
[2024-02-16] MEDS ORDERED: Lidocaine 4% 1 Patch TOP SCH (09:00)
[2024-02-16] MEDS ORDERED: PredniSONE 5 MG Tab PO SCH (09:00)
[2024-02-16 12:36] VITALS: BP 107/74
[2024-02-16 15:37] VITALS: BP 109/63
--- NOTE | 2024-02-16 17:34 | NUR ---
SUMMARY: Patient has been alert and oriented T/O the shift. She had minimal C/O pain in her left rib area and neck, this was relived with tyelnol and a lidocaine patch. She has been in A-Fib, rate controlled in the 80s-90s, blood pressure has been on the soft side with MAP above 70. LS Dim in the bases, biox has been mid to low 90s on RA. BT+. She has a purewick in place. No acute changes this shift, will report to oncoming RN.
[2024-02-16 17:49] VITALS: BP 102/55
[2024-02-16 20:24] VITALS: BP 105/58
--- NOTE | 2024-02-16 22:39 | NUR ---
Called by groundwater monitoring technician noted patient's O2 sats to be 80% on RA while asleep. Patient endorses KIM and noncompliance with cpap due to being unale to find one that fits comfortably. Patient placed on 2LNC while asleep.
[2024-02-17 00:15] VITALS: BP 110/64
[2024-02-17 03:42] VITALS: BP 117/71
--- NOTE | 2024-02-17 04:16 | NUR ---
SHIFT SUMMARY PATIENT A&OX4, AFIB CONTROLLED ON TELEMETRY, VSS ON RA/2LHS- KIM PRESENT PATIENT NONCOMPLAINT WITH CPAP. DESATS WHILE ASLEEP. C/O PAIN IN NECK AND SHOULDERS RELIEVED WITH PRN TYLENOL. 600ML URINE OP VIA PUREWICK AT NIGHTS. 2+ LE EDEMA PRESENT. PLAN IS TO CONTINUE DIURESIS, PT RECOMMENDING HHC AT DISCHARGE. DAUGHTER UPDATED BY DAY RN AT END OF SHIFT YESTERDAY. UNEVENTFUL NIGHT.
[2024-02-17 08:06] VITALS: BP 116/56
[2024-02-17 09:09] LABS: Bun/Creatinine Ratio 35.9 (12.0-20.0); Calcium, Blood 9.4 mg/dL (8.5-10.1); Creatinine, Blood 0.73 mg/dL (0.40-1.00); Potassium, Blood 3.8 mmol/L (3.5-5.5)
--- NOTE | 2024-02-17 12:10 | NUR ---
REASSESSMENT PT WAS WEANED OFF HER OXYGEN THIS MORNING AND HAS MAINTAINED SPO2 ABOVE 90% ON RA. LUNGS STILL HAVE A FEW CRACKLES IN THE BASES. PT WAS RESISTANT TO GETTING UP TO THE CHAIR THIS MORNING FOR BREAKFAST, BUT HAS BEEN UP TO THE COMODE SINCE AND IS NOW SITTING IN A CHAIR FOR LUNCH. PUREWICK REMOVED IT WAS LEAKING AND PT HAS A BRIEF ON. BP STABLE, EATING WITHOUT DIFFICULTY. PT'S CAREGIVER VISITED AND WAS UPDATED BY PT.
--- NOTE | 2024-02-17 14:47 | NUR ---
TRANSFER PT TRANSFERRED TO MEDICAL FLOOR, RM 308. REPORT GIVEN TO NORMAN GUAJARDO. PT TRANSPORTED VIA HER OWN WC. PT'S PURSE AND CELL PHONE IN PT'S HANDS AT TIME OF TRANSFER.
[2024-02-17 15:46] VITALS: BP 131/60
--- NOTE | 2024-02-17 16:57 | NUR ---
PATIENT RESTING IN BED, NO DISTRESS, RESPS EVENA DN NON LABORED, HAS USED CALL LIGHT, PLEASANT TO CARE
[2024-02-17 20:36] VITALS: BP 111/60
[2024-02-18 04:22] VITALS: BP 108/55
--- NOTE | 2024-02-18 04:23 | NUR ---
SHIFT SUMMARY PATIENT HAD NO ACUTE CHANGES. AXOX 3 AND ONE ASSIST TO BSC W/FWW. DENIES CHEST PAIN, SOB, AND N/V. TELE MONITOR AFIB 98. REPORTED BACK/NECK PAIN X ONE AND TYLENOL 650 MG GIVEN PER EMAR. COOPERATIVE WITH CARE. CALL LIGHT IN REACH. BED IN LOWEST POSITION. WILL CONTINUE TO MONITOR UNTIL DAY SHIFT NURSE ASSUMES CARE.
[2024-02-18 07:21] VITALS: BP 123/46
[2024-02-18] MEDS ORDERED: Furosemide 40 MG Tab PO SCH (09:00)
[2024-02-18] MEDS ORDERED: Potassium Chloride 10 Meq Tablet SA PO SCH (09:00)
[2024-02-18] MEDS ORDERED: Torsemide 20 MG TAB PO SCH (09:00)
[2024-02-18] MEDS ORDERED: Empagliflozin 10 MG TAB PO SCH (09:00)
[2024-02-18] MEDS ORDERED: JARDIANCE10 MG PO (12:47)
[2024-02-18] MEDS ORDERED: POTA10T PO (12:49)
--- NOTE | 2024-02-18 13:32 | NUR ---
discharge instructions THE PT VERBALIZED UNDERSTANDING OF THE DC INSTRUCTIONS. THE PHARMACIST WENT OVER DC MEDS WITH THE PT AND ALL QUESTIONS WERE ANSWERED PER THE PT. THE PT WAS REMINDED TO CALL HER PCP FOR A POST HOSPITAL REVIEW APPOINTMENT. PT IS AWAITING HER RIDE HOME
--- NOTE | 2024-02-18 14:08 | NUR ---
1405 DSICAHRGED HOME VIA W/C, DSICAHRGE INSTRUCTIONS GIVEN TO PATIENT, PATIENT STATED UNDERSTANDING OF INSTRUCTIONS, MEDICATIONS AND FOLLOW UP, PATIENT DENIED FURTHER QUESTIONS
[2024-02-19] MEDS ORDERED: Methotrexate Sod 2.5 MG Tab PO SCH ×2 (09:00)
== END 2024-02-18 14:05 | disposition home health service (06) | DRG 291 ==
LOC: ER 14:04 → PCU 14:05 → MEDS 02-17 14:48 → ENPENDDIS 02-18 11:44 → MEDS 02-18 14:05
PROVIDERS: Family Medicine Adult Medicine; Internal Medicine; Physician Assistant; ADMIT Family Medicine
DX: I11.0 Hypertensive heart disease with heart failure (principal); I50.33 Acute on chronic diastolic (congestive) heart failure; I48.91 Unspecified atrial fibrillation; K21.9 Gastro-esophageal reflux disease without esophagitis; E87.6 Hypokalemia; D72.829 Elevated white blood cell count, unspecified; M06.9 Rheumatoid arthritis, unspecified; D63.8 Anemia in other chronic diseases classified elsewhere; J45.909 Unspecified asthma, uncomplicated; M19.90 Unspecified osteoarthritis, unspecified site; Z88.0 Allergy status to penicillin; Z88.8 Allergy status to other drugs, medicaments and biological substances; Z88.1 Allergy status to other antibiotic agents; Z79.899 Other long term (current) drug therapy; Z79.01 Long term (current) use of anticoagulants; Z87.19 Personal history of other diseases of the digestive system; Z90.49 Acquired absence of other specified parts of digestive tract; Z98.890 Other specified postprocedural states; Z90.89 Acquired absence of other organs; Z90.710 Acquired absence of both cervix and uterus; Z90.722 Acquired absence of ovaries, bilateral; Z96.652 Presence of left artificial knee joint; Z60.2 Problems related to living alone
CPT/HCPCS: 36415; 71046; 80048; 80053; 81001; 82607; 82746; 83690; 83735; 83880; 84484; 85025; 87086; 93308; 93321; 94760; 94762; 96374; 96376; 97110; 97116; 97162; 97530; 99285-25; A9270; G0378; J1940; J7512

== ENCOUNTER 2024-05-02 07:09 | Day surgery (SDC) | payer MEDICARE ==
[2024-05-02] VITALS (8 sets, daily range): BP systolic 109–150; BP diastolic 73–78
[~2024-05-02] VITALS: Ht 160 cm; Wt 95.0 kg
[~2024-05-02 07:09] MED LIST changes: +JARDIANCE10 MG PO; +POTA10T PO
[2024-05-02] MEDS ORDERED: Verapamil HCL 2.5 MG/ML 2ML Injection ONE (07:48)
[2024-05-02] MEDS ORDERED: Heparin Sodium 1000 Units/ML 10ML MDV ONE ×2 (07:48→09:24)
[2024-05-02] MEDS ORDERED: NS 250 ML IV ONE (07:48)
[2024-05-02] MEDS ORDERED: Nitroglycerin 2 MG/20 ML BTL ONE (07:48)
[2024-05-02] MEDS ORDERED: NS 1,000 ML IV ONE ×2 (07:48→09:24)
[2024-05-02] MEDS ORDERED: FentaNYL Citrate 50 MCG/ML 2 ML Injection ONE (09:24)
[2024-05-02] MEDS ORDERED: Midazolam HCl 1MG / ML 2ML Vial ONE (09:24)
[2024-05-02] MEDS ORDERED: Furosemide 10 MG / ML 2ML Vial ONE ×2 (10:03→10:49)
[2024-05-02] MEDS ORDERED: SOAANZ20 M1 PO (11:20)
--- NOTE | 2024-05-02 12:36 | NUR ---
PT TR BAND FULLY DEFLATED. NO BLEEDING OR HEMATOMA NOTED. VSS. NADN. PT RESTING COMFORTBALY.
--- NOTE | 2024-05-02 13:35 | NUR ---
PT DRESSES SELF WITH MINIMAL ASSISTANCE. VSS. NADN. PT AND CAREGIVER VERBALIZES UNDERSTANDING WRITTEN AND VERBAL INSTRUCTIONS. PT IV DC'D. CATH INTACT. PRESSURE DSG APPLIED. PT TR BAND REMOVED. CLOT DOT IN PLACE WITH SPLINT. NO BLEEDING NOTED. PT DC TO HOME VIA CAREGIVER BY PAU
== END 2024-05-02 13:45 | disposition home or self-care (01) ==
LOC: MHTC 07:09
DX: I27.20 Pulmonary hypertension, unspecified (principal); I11.0 Hypertensive heart disease with heart failure; I50.32 Chronic diastolic (congestive) heart failure; I48.21 Permanent atrial fibrillation; I05.0 Rheumatic mitral stenosis; I35.0 Nonrheumatic aortic (valve) stenosis; D64.9 Anemia, unspecified; K21.9 Gastro-esophageal reflux disease without esophagitis; M81.0 Age-related osteoporosis without current pathological fracture; E78.00 Pure hypercholesterolemia, unspecified; G47.33 Obstructive sleep apnea (adult) (pediatric); Z79.01 Long term (current) use of anticoagulants; Z79.52 Long term (current) use of systemic steroids; Z79.899 Other long term (current) drug therapy; Z88.1 Allergy status to other antibiotic agents; Z88.6 Allergy status to analgesic agent; Z88.0 Allergy status to penicillin; Z88.5 Allergy status to narcotic agent; Z91.040 Latex allergy status; Z90.49 Acquired absence of other specified parts of digestive tract; Z90.710 Acquired absence of both cervix and uterus
CPT/HCPCS: 76937; 93460; 99152; 99153; C1769; C1887; C1894; J1644; J1940; J2250; J3010; J7030; J7050; Q9967

== ENCOUNTER 2024-07-06 06:00 | Day surgery (SDC) | payer MEDICARE ==
[~2024-07-06 06:00] MED LIST changes: +SOAANZ20 M1 PO
[2024-07-06] MEDS ORDERED: NS 1,000 ML IV ONE (06:36)
[2024-07-06] MEDS ORDERED: Benzocaine Oral Spray 0.5ML UD ONE (06:44)
[2024-07-06 06:58] VITALS: BP 124/74
--- NOTE | 2024-07-06 07:19 | NUR ---
ASSUMED CARE FROM ANESTHESIA. PT AWAKE AND VERBALIZING WELL.
[2024-07-06 07:28] VITALS: BP 114/69
[2024-07-06 07:32] VITALS: BP 107/66
[2024-07-06 07:40] VITALS: BP 108/58
--- NOTE | 2024-07-06 08:00 | NUR ---
PT AND FAMILY VERBALIZED UNDERSTANDING OF WRITTEN AND VERBAL D/C INST. IV REMOVED. PT AMB IN RM /S DIFFICULTY. PT TAKEN OUT OF THE HRT CENTER VIA W/C.
[2024-07-06] MEDS ORDERED: Propofol 10mg/ml 20 ml Vial (Procedural) IV ONE (13:30)
[2024-07-06] MEDS ORDERED: Lidocaine HCl 2% 20 MG/ML 5ML SYR IV ONE (13:30)
== END 2024-07-06 23:00 | disposition home or self-care (01) ==
LOC: MHTC 06:00
DX: I05.0 Rheumatic mitral stenosis (principal); I48.21 Permanent atrial fibrillation; I11.0 Hypertensive heart disease with heart failure; I50.32 Chronic diastolic (congestive) heart failure; F32.A Depression, unspecified; K21.9 Gastro-esophageal reflux disease without esophagitis; E78.00 Pure hypercholesterolemia, unspecified; E66.01 Morbid (severe) obesity due to excess calories; G47.33 Obstructive sleep apnea (adult) (pediatric); Z68.37 Body mass index [BMI] 37.0-37.9, adult; Z79.899 Other long term (current) drug therapy; Z79.01 Long term (current) use of anticoagulants; Z88.0 Allergy status to penicillin; Z88.5 Allergy status to narcotic agent; Z88.8 Allergy status to other drugs, medicaments and biological substances; Z91.040 Latex allergy status
CPT/HCPCS: 93312; 93325; A9270; J2003; J2704; J7030

== ENCOUNTER 2024-07-30 15:24 | Emergency (ER) | payer MEDICARE ==
[~2024-07-30] VITALS: Ht 160 cm; Wt 95.2 kg
[2024-07-30 16:27] LABS: Hematocrit 30.5 % (33.0-51.0); Hemoglobin 9.7 g/dL (11.5-16.0); Mean Corpuscular HGB 36.9 pg (26.0-34.0); Mean Corpuscular HGB Conc 31.8 g/dL (31.5-36.5); Mean Corpuscular Volume 116 fL (80-100); Mean Platelet Volume 10.7 fL (9.1-12.4); NRBC ABSOLUTE 0.36 K/mm3 (0.00-0.02); NRBC Auto 3.1 /100 WBC (0.0-0.2); Platelet Count 334 K/mm3 (150-400); RDW Coefficient Variation 22.3 % (11.7-14.2); RDW Standard Deviation 95.6 fL (35.1-46.3); Red Blood Cell Count 2.63 M/mm3 (3.80-5.20); White Blood Cell Count 11.64 K/mm3 (4.00-11.30)
[2024-07-30 16:55] LABS: Albumin, Blood 3.7 g/dL (3.4-5.0); Albumin/Globulin Ratio 1.6 (0.8-1.8); Bilirubin, Total 1.4 mg/dL (0.1-1.0); Bun/Creatinine Ratio 23.6 (12.0-20.0); Calcium, Blood 9.5 mg/dL (8.5-10.1); Creatinine, Blood 0.85 mg/dL (0.40-1.00); Globulin, Blood 2.3 g/dL (2.2-4.0); Potassium, Blood 4.5 mmol/L (3.5-5.5)
[2024-07-30 17:09] LABS: BAND PERCENT MAN 3 % (0-8); BASOPHILS PERCENT MAN 0 % (0-2); EOSINOPHILS ABSOLUTE MAN 0.23 K/mm3 (0.00-0.68); EOSINOPHILS PERCENT MAN 2 % (0-6); LYMPHOCYTES ABSOLUTE MAN 0.34 K/mm3 (0.84-5.20); LYMPHOCYTES PERCENT MAN 3 % (21-46); MONOCYTES ABSOLUTE MAN 0.69 K/mm3 (0.16-1.47); MONOCYTES PERCENT MAN 6 % (4-13); MYELOCYTE ABSOLUTE MAN 0.34 K/mm3 (0.00-0.00); MYELOCYTE PERCENT MAN 3 % (0-0); NEUTROPHILS ABSOLUTE MAN 10.01 K/mm3 (1.96-9.15); SEG NEUTROPHILS PERCENT MAN 83 % (41-73); TOTAL CELLS COUNTED 100
[2024-07-30] MEDS ORDERED: Triamcinolone Inj Susp 40 MG / ML 1ML Vial IM ONE (18:30)
[2024-07-30] MEDS ORDERED: Torsemide 10 MG TAB PO ONE (19:25)
[2024-07-30 19:30] VITALS: BP 130/71
== END 2024-07-30 20:12 | disposition home or self-care (01) ==
LOC: ER 15:24
PROVIDERS: Student in an Organized Health Care Education/Training Program
DX: M25.511 Pain in right shoulder (principal); R60.0 Localized edema; J45.909 Unspecified asthma, uncomplicated; I10 Essential (primary) hypertension; I48.91 Unspecified atrial fibrillation; Z88.1 Allergy status to other antibiotic agents; Z88.0 Allergy status to penicillin; Z91.011 Allergy to milk products; Z88.8 Allergy status to other drugs, medicaments and biological substances; Z91.048 Other nonmedicinal substance allergy status; Z79.899 Other long term (current) drug therapy; Z79.01 Long term (current) use of anticoagulants
CPT/HCPCS: 20611; 71111; 73030; 80053; 85025; 93005; 93010; 99284-25; A9270; J3301